=== PATIENT | male | born 1950 | race Caucasian/White ===

== ENCOUNTER 2017-02-05 13:14 | Observation (INO) | payer BC, OTHER ==
[2017-02-05] MEDS ORDERED: diphenhydrAMINE 25 MG CAP PO ONE (13:32)
[2017-02-05] MEDS ORDERED: NS 1,000 ML IV ONE (13:32)
[2017-02-05] MEDS ORDERED: DIAZEPAM 5 MG TAB PO ONE (13:32)
[2017-02-05] MEDS ORDERED: BACITRACIN IRRIGATION/NS 50,000 UNITS/1,000 ML BTL IRR ONE (13:32)
[2017-02-05] MEDS ORDERED: ceFAZolin 2 GM/DEXTROSE 100 ML IV ONE (13:32)
[2017-02-05] MEDS ORDERED: BUPIVACAINE 0.5% 30 ML SDV ONE ×2 (13:37→13:47)
[2017-02-05] MEDS ORDERED: LIDOCAINE 1% 30 ML SDV ONE ×2 (13:37→13:46)
[2017-02-05] MEDS ORDERED: MIDAZOLAM 2 MG/2 ML VIAL ONE ×4 (13:37→15:40)
[2017-02-05] MEDS ORDERED: fentaNYL 100 MCG/2 ML INJ ONE ×2 (13:37→13:46)
[2017-02-05] MEDS ORDERED: IOPAMIDOL (ISOVUE-300) 100 ML BTL IV ONE (13:38)
--- NOTE | 2017-02-05 13:38 | CPEKG ---
Heart Rate: 64 RR Interval: 938 P-R Interval: 288 QRSD Interval: 84 QT Interval: 408 QTC Interval: 421 P Butler: 6 QRS Butler: 23 T Wave Butler: 18 EKG Severity - ABNORMAL ECG - EKG Impression: SINUS RHYTHM EKG Impression: FIRST DEGREE AV BLOCK Electronically Signed By: Jas Galicia 05-Feb-2017 16:17:34
[2017-02-05 15:02] LABS: % IMMATURE GRANULYOCYTES 0.4 % (0.0-1.1); ABSOLUTE IMMATURE GRANULOCYTES 0.02 10^3/uL (0.00-0.10); ADD DIFF? NO; ADD MORPH? NO; ADD SCAN? NO; ATYPICAL LYMPHOCYTE FLAG 20 (0-99); FRAGMENT RBC FLAG 0 (0-99); HEMATOCRIT 40.4 % (40.0-51.0); HEMOGLOBIN 14.2 g/dL (13.7-17.5); LEFT SHIFT FLG 0 (0-99); LIPEMIA HEMOLYSIS FLAG 90 (0-99); MEAN CELL HEMOGLOBIN 32.5 pg (27.9-34.1); MEAN CELL HEMOGLOBIN CONCENTR. 35.1 g/dL (32.4-36.7); MEAN CELL VOLUME 92.4 fL (81.5-99.8); MEAN PLATELET VOLUME 11.5 fL (8.7-11.7); PLATELET CLUMPS FLAG 10 (0-99); PLATELET COUNT 142 10^3/uL (150-400); RED BLOOD CELL COUNT 4.37 10^6/uL (4.40-6.38); RED CELL DISTRIBUTION WIDTH 12.3 % (11.5-15.2)
[2017-02-05 15:10] LABS: INR 1.02 (0.83-1.16); PROTIME(PATIENT) 13.3 SEC (12.0-15.0)
[2017-02-05 15:14] LABS: ANION GAP 12 mEq/L (8-16); CALCIUM 9.8 mg/dL (8.5-10.4); CARBON DIOXIDE 23 mEq/l (22-31); CHLORIDE 107 mEq/L (97-110); CREATININE 1.5 mg/dL (0.7-1.3); GLOMERULAR FILTRATION RATE 47; GLUCOSE 85 mg/dL (70-100); POTASSIUM 4.9 mEq/L (3.5-5.2); SODIUM 142 mEq/L (134-144)
[2017-02-05] MEDS ORDERED: HYDROCODONE/APAP 5/325 TAB PO PRN (16:15)
--- NOTE | 2017-02-05 16:15 | EPPROC ---
Electrophysiology Procedure Note: PROCEDURE PERFORMED: 1. Implantation of an A/V Pacemaker 2. Subclavian vein angiography 3. Fluoroscopy INDICATION: Chronotropic incompetence Wenkebach AV block and 2:1 AV block PROCEDURE NOTE: Patient presented to the cardiac catheterization laboratory in a fasting, post absorptive state . CCL RN administered sedation. The left infraclavicular area was prepped and draped in the usual sterile fashion. Lidocaine plus bupivacaine was used for local anesthesia. Left subclavian venography was performed by injection of iodinated contrast into the left antecubital vein. This was done to assure patency of the vein and also to assess for any anatomical aberrations. Using a combination of blunt and sharp dissection and electrocautery, the dissection was carried down to the prepectoral fascia. A pocket was made in this anatomical plane. All bleeding was controlled with electrocautery. The pocket was packed with gauze soaked in antibiotic solution. Fluoroscopy was utilized during the entire procedure for venous access and placement of the leads. Using a direct stick technique the left extrathoracic axillary vein was accessed with 2 sticks using the modified Seldinger technique. Placement of the guidewires into the venous system was confirmed by low-pressure blood return and also by visualizing the guidewires advancing into the inferior vena cava. A purse string suture was applied around the guidewires. Two #7 Citizen [place] sheaths were advanced under fluoroscopic guidance over the guidewire. An active fixation ventricular lead was advanced into the right ventricular apex and screwed in place. An active fixation atrial lead was advanced into the right atrial appendage and screwed in place. The peel away sheaths were removed. Pacing thresholds, sensing parameters and lead impedances were measured. There was no diaphragmatic stimulation at maximum output. The leads were sutured to the prepectoral fascia with 3 nonabsorbable sutures each. The pocket was again inspected for any bleeding. The leads were attached to the pacemaker securely. The pacemaker was inserted into the pocket and secured in place with a nonabsorbable suture. The atrial lead dislodged after the pacemaker pocket was closed and therefore had to be repositioned. Fluoroscopy was performed in MCBRIDE and ZAMBIAN planes to verify right-sided placement of the leads. Also fluoroscopy of the pacemaker pocket was performed. The pacemaker pocket was closed in 3 layers with absorbable monocryl sutures and javna. Appropriate dressing was applied. The patient left the cardiac catheterization laboratory in stable condition. Serial Numbers: 1. Device: SJM Assurity MRI 2272 SN [id number] 2. Atrial Lead: SJM Tendril [id number] SN [id number] 3. Ventricular Lead: SJM Tendril [id number] 58 SN [id number] Stimulation Thresholds & Impedance Measurements: 1. Atrial Lead 1 V 0.5 ms 1.5 mA P 3.4 mV 621 ohm 2. Ventricular Lead 0.5 V 0.5 ms 0.4 mA R 12.1 mV 917 ohm Mitchell Pacing Parameters 1. Pacing mode: DDDR 2. Lower rate: 60 ppm 3. Upper tracking rate: 130 ppm 4. Upper sensor rate: 130 ppm Patient Problems: Problems Problem Status Onset Bradycardia Acute
[2017-02-05] MEDS ORDERED: IBUPROFEN 200 MG TAB PO PRN (16:16)
--- NOTE | 2017-02-05 16:30 | CPEKG ---
Heart Rate: 137 RR Interval: 438 P-R Interval: 308 QRSD Interval: 82 QT Interval: 424 QTC Interval: 641 P Newry: 0 QRS Newry: 18 T Wave Newry: 39 EKG Severity - ABNORMAL ECG - EKG Impression: AV paced rhythm with intermittent V sensing EKG Impression: FIRST DEGREE AV BLOCK EKG Impression: PROBABLE LEFT ATRIAL ABNORMALITY Electronically Signed By: aJs Galicia 06-Feb-2017 18:22:54
[2017-02-05] MEDS ORDERED: ASPIRIN 81 MG CHEWABLE TAB PO SCH (21:00)
[2017-02-05] MEDS ORDERED: ATORVASTATIN CALCIUM 40 MG TAB PO SCH (21:00)
[2017-02-06 05:34] LABS: % IMMATURE GRANULYOCYTES 0.2 % (0.0-1.1); ABSOLUTE IMMATURE GRANULOCYTES 0.01 10^3/uL (0.00-0.10); ADD DIFF? NO; ADD MORPH? NO; ADD SCAN? NO; ATYPICAL LYMPHOCYTE FLAG 20 (0-99); FRAGMENT RBC FLAG 10 (0-99); HEMATOCRIT 38.4 % (40.0-51.0); HEMOGLOBIN 13.2 g/dL (13.7-17.5); LEFT SHIFT FLG 0 (0-99); LIPEMIA HEMOLYSIS FLAG 90 (0-99); MEAN CELL HEMOGLOBIN CONCENTR. 34.4 g/dL (32.4-36.7); MEAN CELL VOLUME 93.2 fL (81.5-99.8); MEAN PLATELET VOLUME 12.2 fL (8.7-11.7); PLATELET CLUMPS FLAG 0 (0-99); PLATELET COUNT 158 10^3/uL (150-400); RED BLOOD CELL COUNT 4.12 10^6/uL (4.40-6.38); RED CELL DISTRIBUTION WIDTH 12.6 % (11.5-15.2)
[2017-02-06 05:36] VITALS: PULSE 60
[2017-02-06 05:51] LABS: ANION GAP 8 mEq/L (8-16); CALCIUM 9.2 mg/dL (8.5-10.4); CARBON DIOXIDE 21 mEq/l (22-31); CHLORIDE 108 mEq/L (97-110); CREATININE 1.2 mg/dL (0.7-1.3); GLOMERULAR FILTRATION RATE > 60; GLUCOSE 84 mg/dL (70-100); POTASSIUM 4.8 mEq/L (3.5-5.2); SODIUM 137 mEq/L (134-144)
[2017-02-06 07:34] VITALS: BP 129/71; RESP 20; TEMP 97.9; O2SAT 90
--- NOTE | 2017-02-06 08:57 | CPEKG ---
Heart Rate: 63 RR Interval: 952 P-R Interval: 284 QRSD Interval: 78 QT Interval: 408 QTC Interval: 418 P Treynor: -18 QRS Treynor: 4 T Wave Treynor: 26 EKG Severity - ABNORMAL ECG - EKG Impression: ATRIAL-PACED COMPLEXES EKG Impression: FIRST DEGREE AV BLOCK EKG Impression: PROBABLE LEFT ATRIAL ABNORMALITY Electronically Signed By: Jas Galicia 06-Feb-2017 18:22:29
--- NOTE | 2017-02-06 10:48 | PDDCSUM ---
Discharge Summary Discharge Summary: 66-year-old male admitted for elective pacemaker implantation because of chronotropic incompetence and intermittent 2-1 and Wenckebach AV block associated with fatigue. Hospital course and stay-patient had a pacemaker implantation yesterday, procedure was uneventful. Postprocedure chest x-ray on the evening of the procedure in the morning after the procedure is normal with leads in good position. Device check this morning shows normal pacemaker function. Wound site is clean and dry without any evidence of bleeding or infection. Postprocedure care was reviewed with the patient. He will have javan removed in 1 week. He will follow up with me in 1 month.
== END 2017-02-06 14:14 | disposition home or self-care (01) ==
LOC: FCATH 13:14 → F2W 16:15
PROVIDERS: ADMIT Internal Medicine Cardiovascular Disease; ATTEND Internal Medicine Cardiovascular Disease
DX: I44.1 Atrioventricular block, second degree (principal); E78.5 Hyperlipidemia, unspecified; I35.0 Nonrheumatic aortic (valve) stenosis
CPT/HCPCS: 33208; 93005; G0378; C1785; C1898; J0690; J2250; J3010; Q9967

== ENCOUNTER → 2017-02-12 | Outpatient (CLI) | payer OTHER ==
[~2017-02-12] MED LIST: IOPAMIDOL (ISOVUE 370) 100 ML BTL IV ONE
== END ==
LOC: FIMAGING 11:54
PROVIDERS: ATTEND Internal Medicine Cardiovascular Disease
DX: I71.2 Thoracic aortic aneurysm, without rupture (principal); I35.0 Nonrheumatic aortic (valve) stenosis; I25.10 Atherosclerotic heart disease of native coronary artery without angina pectoris; R00.1 Bradycardia, unspecified
CPT/HCPCS: Q9967

== ENCOUNTER → 2017-04-10 | Outpatient (CLI) | payer OTHER, MEDICARE | LOC: BHFA 13:15 | PROVIDERS: ATTEND Internal Medicine Cardiovascular Disease | DX: I48.91 Unspecified atrial fibrillation (principal); Z95.0 Presence of cardiac pacemaker ==

== ENCOUNTER → 2017-10-14 | Outpatient (CLI) | payer OTHER, MEDICARE | LOC: BHCLAF 09:15 | PROVIDERS: ATTEND Internal Medicine | DX: I25.10 Atherosclerotic heart disease of native coronary artery without angina pectoris (principal); I35.9 Nonrheumatic aortic valve disorder, unspecified | CPT/HCPCS: 93306-PO ==

== ENCOUNTER → 2017-10-15 | Outpatient (CLI) | payer OTHER, MEDICARE | LOC: FIMAGING 12:45 | PROVIDERS: ATTEND Internal Medicine | DX: Z13.820 Encounter for screening for osteoporosis (principal); M85.80 Other specified disorders of bone density and structure, unspecified site; E29.1 Testicular hypofunction ==

== ENCOUNTER → 2018-06-03 | Outpatient (CLI) | payer OTHER, MEDICARE | LOC: BHFA 16:15 | PROVIDERS: ATTEND Internal Medicine Cardiovascular Disease | DX: I35.0 Nonrheumatic aortic (valve) stenosis (principal) ==

== ENCOUNTER → 2018-07-30 | Day surgery (SDC) | payer OTHER, MEDICARE ==
[~2018-07-30] MED LIST changes: +ASPIRIN EC 325 MG TAB PO ONE; +ATROPINE SULFATE 1 MG/10 ML SYR IVP PRN; +DIAZEPAM 5 MG TAB PO ONE; +FAMOTIDINE 20 MG TAB PO ONE; +HYDROCODONE/APAP 5/325 TAB PO PRN; -IOPAMIDOL (ISOVUE 370) 100 ML BTL IV ONE; +IOPAMIDOL (ISOVUE-370) 150 ML BTL IV ONE; +LIDOCAINE 1% 300 MG/30 ML SDV ONE; +MIDAZOLAM 2 MG/2 ML VIAL ONE; +NITROGLYCERIN 0.4 MG BTL SL PRN; +NS 1,000 ML IV ONE; +ONDANSETRON 4 MG/2 ML VIAL IVP PRN; +OXYCODONE/APAP 5/325 TAB PO PRN; +diphenhydrAMINE 25 MG CAP PO ONE; +fentaNYL 100 MCG/2 ML INJ ONE
[2018-07-30 12:42] LABS: PLATELET COUNT 172 10^3/uL (150-400)
[2018-07-30 12:51] LABS: INR 0.98 (0.83-1.16); PROTIME(PATIENT) 13.2 SEC (12.0-15.0)
--- NOTE | 2018-07-30 13:43 | PDPROPOC ---
Sedation Plan of Care Sedation Plan of Care: vital signs stable, mental status noted, patient educated of risks, benefits, alternatives, patient can tolerate sedation ASA Classification: ASA 2 Planned drugs: fentanyl, midazolam Mallampati Score: Class 2 Mallampati Reference Image: Patient passed 3-3-2 rule?: Yes
--- NOTE | 2018-07-30 13:43 | PDHPUP ---
History & Physical Update H&P update statement: This history and physical update is based on an assessment of the patient which was completed after admission or registration (within 24 hours), but prior to the surgery/procedure. H&P update: H&P reviewed & patient examined, no change in patient's condition since H&P completed (Reviewed Dr. Trivedi's office note dated 07/15/2018)
--- NOTE | 2018-07-30 15:12 | PDDXCAT ---
Diagnostic Cath Note - . Date: 07/30/18 Site Interpreter: Valentín Indication: other (pre TAVR) - Procedure Access: right groin Procedure: left heart catheterization, coronary angiography - Materials Left Heart Cath size: 6F Left Heart Cath materials: JL4.0, JR4.0 - Findings-Left Heart Catheterization LM: Normal and bifurcates into the LAD and left circumflex LAD: Reaches apex. 1 large diagonal vessel. No significant disease in the LAD or the diagonal. LCX: Large. Left dominant. 1 large obtuse marginal. No significant disease. RCA: No significant disease. EDP: Aortic valve was not crossed due to the patient's history of severe aortic stenosis. - Findings-Right Heart Catheterization AO: 114/63 Complications: None Estimated blood loss: <50ml Closure method: Angioseal Assessment: No significant coronary disease in this left dominant system Plan: Continue cardiac surgery evaluation for aortic valve replacement. Patient Problems: Problems Problem Status Onset Bradycardia Acute
--- NOTE | 2018-07-31 16:30 | CPEKG ---
Test Reason : OPEN Blood Pressure : / mmHG Vent. Rate : 066 BPM Atrial Rate : 066 BPM P-R Int : 253 ms QRS Dur : 163 ms QT Int : 455 ms P-R-T Axes : -04 -79 083 degrees QTc Int : 477 ms Atrial-sensed ventricular-paced rhythm Prior ECG with atrial paced rhythm Confirmed by Arturo Guo ([id number]) on 07/31/2018 4:30:19 PM Referred By: Confirmed By:Arturo Guo
== END | disposition home or self-care (01) ==
LOC: FCATH 12:08
PROVIDERS: ATTEND Internal Medicine Cardiovascular Disease
PROC: B2111ZZ Fluoroscopy of Multiple Coronary Arteries using Low Osmolar Contrast (ICD-10-PCS; principal; 2018-07-30)
DX: Z13.6 Encounter for screening for cardiovascular disorders (principal); I35.0 Nonrheumatic aortic (valve) stenosis; Z85.47 Personal history of malignant neoplasm of testis; I77.810 Thoracic aortic ectasia; I48.0 Paroxysmal atrial fibrillation; Z79.01 Long term (current) use of anticoagulants; Z95.0 Presence of cardiac pacemaker
CPT/HCPCS: C1760; J1644; J2250; J3010; Q9967

== ENCOUNTER 2018-07-31 08:45 | Inpatient (IN) | payer OTHER, MEDICARE ==
[2018-08-04] MEDS ORDERED: NOREPINEPHRINE BITARTRATE 16 MG in NS 250 ML IV ONE (06:00)
[2018-08-04] MEDS ORDERED: AMINOCAPROIC ACID 5 GM/20 ML VIAL IV ONE (06:00)
[2018-08-04] MEDS ORDERED: MANNITOL 25% 12.5 GM/50 ML VIAL IVP ONE (06:00)
[2018-08-04] MEDS ORDERED: PHENYLEPHRINE HCL 50 MG in NS 250 ML IV ONE (06:00)
[2018-08-04] MEDS ORDERED: INSULIN REGULAR HUMAN 100 UNIT in NS 100 ML IV ONE (06:00)
[2018-08-04] MEDS ORDERED: PROTAMINE SULFATE 50 MG/5 ML VIAL IVP ONE (08:26)
[2018-08-04] MEDS ORDERED: ALBUMIN 5% 250 ML BOTTLE IV ONE ×2 (08:26→13:23)
[2018-08-04] MEDS ORDERED: NA BICARBONATE 50 MEQ/50 ML VIAL ONE ×2 (08:27→14:43)
[2018-08-04] MEDS ORDERED: MILRINONE/DEXTROSE/100 ML BAG IV ONE (08:27)
[2018-08-04] MEDS ORDERED: LIDOCAINE 2% 100 MG/5 ML SYR ONE (08:27)
[2018-08-04] MEDS ORDERED: CALCIUM CHLORIDE 1 GM/10 ML INJ ONE (08:27)
[2018-08-04] MEDS ORDERED: HEPARIN 10,000 UNIT/10 ML MDV (1,000 UNIT/ML) ONE (08:28)
[2018-08-04] MEDS ORDERED: niCARdipine/NACL/200 ML BAG IV ONE (08:28)
[2018-08-04] MEDS ORDERED: CITRATE DEXTROSE SOLN 500 ML BAG ONE (08:28)
[2018-08-04] MEDS ORDERED: DOPamine/DEXTROSE 400 MG/250 ML BAG IV ONE (08:28)
[2018-08-04] MEDS ORDERED: AMIODARONE HCL 150 MG/3 ML VIAL ONE (08:29)
[2018-08-04] MEDS ORDERED: ADENOSINE 6 MG/2 ML VIAL ONE (08:29)
[2018-08-04] MEDS ORDERED: methylPREDNISolone SOD SUCC 1 GM/8 ML VIAL ONE (08:29)
[2018-08-04] MEDS ORDERED: ceFAZolin 1 GM VIAL ONE ×3 (08:29→12:53)
[2018-08-04] MEDS ORDERED: MAGNESIUM SULFATE 1 GM/2 ML VIAL ONE (08:29)
[2018-08-04] MEDS ORDERED: NITROGLYCERIN/D5W 50 MG/250 ML BOTTLE IV ONE (08:29)
[2018-08-04] MEDS ORDERED: CHLORHEXIDINE GLUC HIBICLENS 118 ML BTL TP SCH (08:33)
[2018-08-04] MEDS ORDERED: MUPIROCIN 2% 22 GM OINT NS ONE (08:33)
[2018-08-04] MEDS ORDERED: MUPIROCIN 2% 22 GM OINT NS SCH (08:33)
[2018-08-04] MEDS ORDERED: ceFAZolin 2 GM/DEXTROSE 100 ML IV ONE (08:33)
[2018-08-04] MEDS ORDERED: NS 1,000 ML IV ONE (08:33)
[2018-08-04] MEDS ORDERED: LIDOCAINE 1% 2 ML INJ ID PRN (08:33)
[2018-08-04] MEDS ORDERED: CITRATE DEXTROSE SOLN 500 ML BAG MISC ONE (08:33)
--- NOTE | 2018-08-04 09:42 | PDHPUP ---
History & Physical Update H&P update statement: This history and physical update is based on an assessment of the patient which was completed after admission or registration (within 24 hours), but prior to the surgery/procedure. H&P update: H&P reviewed & patient examined, changes noted ([facility] neg for CAD. PPM interrogation this am reveals low burden (<1 %) of AF since 09/2017. Affirms desire for MICS AVR. CoxMaze IV only if conversion to full sternotomy.)
--- NOTE | 2018-08-04 09:53 | PDANEPAE ---
ANE History of Present Illness here for AVR ANE Past Medical History - Cardiovascular History Hx Hypertension: No Hx Arrhythmias: Yes Hx Chest Pain: No Hx Coronary Artery / Peripheral Vascular Disease: Yes Hx CHF / Valvular Disease: Yes Hx Palpitations: No - Pulmonary History Hx COPD: No Hx Asthma/Reactive Airway Disease: No Hx Recent Upper Respiratory Infection: No Hx Oxygen in Use at Home: No Hx Sleep Apnea: No Sleep Apnea Screening Result - Last Documented: Negative - Neurologic History Hx Cerebrovascular Accident: No Hx Seizures: No Hx Dementia: No - Endocrine History Hx Diabetes: No - Renal History Hx Renal Disorders: No - Liver History Hx Hepatic Disorders: No - Neurological & Psychiatric Hx Hx Neurological and Psychiatric Disorders: No - Cancer History Hx Cancer: Yes Cancer History Comment: testicular CA x 2 - Congenital Disorder History Hx Congenital Disorders: No - GI History Hx Gastrointestinal Disorders: No - Other Health History Other Health History: wears glasses - Chronic Pain History Chronic Pain: No - Surgical History Prior Surgeries: double orchiectomy. ACL replacement. hernia repair. appendectomy. tumor removal from renal artery. pacemaker insertion ANE Review of Systems Review of systems is: negative Review of Systems: - Exercise capacity Exercise capacity: >=4 METS METS (RN): 5 METS - Pacemaker Pacemaker Type: Permanent Pacer/Defib Pacemaker Tree Marker: [place] Pacemaker Model: 2272 Pacemaker Mode: DDDR Pacemaker Set Rate: 60 Date Pacemaker Last Checked: 06/17/2018 ANE Patient History - Allergies Allergies/Adverse Reactions: No Known Allergies Allergy (Verified 07/23/18 11:17) - Home Medications Home medications: home medication list seen and reviewed Home Medications: Atorvastatin Calcium [Lipitor 40 mg (*)] 40 mg PO HS 02/05/17 [Last Taken ] - NPO status NPO Status: no food or drink >8 hours NPO Since - Liquids (Date): 08/03/18 NPO Since - Liquids (Time): 23:00 NPO Since - Solids (Date): 08/03/18 NPO Since - Solids (Time): 21:00 - Smoking Hx Smoking Status: Never smoked - Family Anes Hx Family Hx Anesthesia Complications: none ANE Labs/Vital Signs - Vital Signs Vital Signs: reviewed preoperatively; see RN documention for details Blood Pressure: 143/91 Heart Rate: 74 Respiratory Rate: 15 O2 Sat (%): 94 Height: 180.34 cm Weight: 84.822 kg ANE Physical Exam - Airway Neck exam: FROM Mallampati Score: Class 1 - Pulmonary Pulmonary: no respiratory distress - Cardiovascular Cardiovascular: regular rate and rhythym - ASA Status ASA Status: IV ANE Anesthesia Plan Anesthesia Plan: general endotracheal anesthesia Lines/Monitors: arterial line, central line, VIOLETA
[2018-08-04] MEDS ORDERED: fentaNYL 250 MCG/5 ML INJ ONE (10:11)
[2018-08-04] MEDS ORDERED: MIDAZOLAM 2 MG/2 ML VIAL ONE ×2 (10:11→10:14)
[2018-08-04] MEDS ORDERED: PROPOFOL/EMULSION 500 MG/50 ML BOTTLE IV ONE (10:13)
[2018-08-04] MEDS ORDERED: KETAMINE 200 MG/20 ML VIAL ONE (10:49)
[2018-08-04] MEDS ORDERED: ISOFLURANE 100 ML BOTTLE IH ONE (11:59)
[2018-08-04] MEDS ORDERED: EPINEPHrine 1 MG/ML INJ ONE (12:14)
[2018-08-04] MEDS ORDERED: BUPIVACAINE 0.25% 30 ML SDV ONE (12:14)
[2018-08-04] MEDS ORDERED: fentaNYL 100 MCG/2 ML INJ ONE (13:15)
[2018-08-04] MEDS ORDERED: KETOROLAC 30 MG/1 ML SDV ONE (13:19)
[2018-08-04] MEDS ORDERED: SODIUM CL NASAL 45 ML BTL EACHNARE PRN (13:38)
[2018-08-04] MEDS ORDERED: D50W 25 GM/50 ML SYR IVP PRN (13:38)
[2018-08-04] MEDS ORDERED: MAGNESIUM HYDROXIDE 30 ML UDCUP PO PRN (13:38)
[2018-08-04] MEDS ORDERED: niCARdipine/NACL 200 ML IV PRN (13:38)
[2018-08-04] MEDS ORDERED: ONDANSETRON DISINTEGRATING 4 MG TAB PO PRN (13:38)
[2018-08-04] MEDS ORDERED: MEPERIDINE 25 MG/0.5 ML AMP IVP PRN (13:38)
[2018-08-04] MEDS ORDERED: fentaNYL 100 MCG/2 ML INJ IVP PRN (13:38)
[2018-08-04] MEDS ORDERED: POLYETHYLENE GLYCOL 3350 17 GM PKT PO PRN (13:38)
[2018-08-04] MEDS ORDERED: PANTOPRAZOLE SODIUM 40 MG VIAL IVP ONE (13:38)
[2018-08-04] MEDS ORDERED: METOCLOPRAMIDE 10 MG/2 ML VIAL IVP PRN (13:38)
[2018-08-04] MEDS ORDERED: POTASSIUM Cl (KCl) 50 ML IV PRN (13:38)
[2018-08-04] MEDS ORDERED: BISACODYL 10 MG SUPP PR PRN (13:38)
[2018-08-04] MEDS ORDERED: ALBUMIN 5% 250 ML IV PRN (13:38)
[2018-08-04] MEDS ORDERED: NS 1,000 ML IV SCH (13:45)
[2018-08-04] MEDS ORDERED: traMADol 50 MG TAB PO PRN (13:48)
--- NOTE | 2018-08-04 13:55 | PDMN ---
Medical Necessity Medical necessity: 68 yo sp CPT 62069 [facility] [place]290 Cardiac Valve Replacement or Repair, s/p partial sternotomy, L atrial appendage ligation, MC IP only
[2018-08-04] MEDS ORDERED: INSULIN REGULAR HUMAN 100 UNIT in NS 100 ML IV SCH (14:00)
--- NOTE | 2018-08-04 14:10 | POSTANESTH ---
Post Anesthetic Evaluation Cardiovascular Status: Normal, Stable Respiratory Status: Normal, Stable Level of Consciousness/Mental Status: Mildly Sleepy, Arousable Pain Control: Adequate, Prn Tx Ordered Nausea/Vomiting Control: Adequate, Prn Tx Ordered Complications Possibly Related to Anesthesia: None Noted
[2018-08-04] MEDS: ceFAZolin 2 GM/DEXTROSE 100 ML IV SCH ×2 (14:29→21:00)
[2018-08-04] MEDS ORDERED: HYDROmorphONE/DILAUDID 6 MG/30 ML PCA IV PRN (14:55)
[2018-08-04] MEDS ORDERED: NALOXONE HCL 0.4 MG/ML INJ IVP PRN (14:55)
--- NOTE | 2018-08-04 15:26 | GOP ---
DATE OF OPERATION: 08/04/2018 SURGEON: John Trivedi DO RUBBER FLAP CUTTER: MD Angella Hoskins PA-C ANESTHESIOLOGIST: Maynor Rubio MD. PREOPERATIVE DIAGNOSIS: 1. Severe aortic stenosis. 2. Atrial flutter by history. POSTOPERATIVE DIAGNOSIS: 1. Severe aortic stenosis. 2. Atrial flutter by history. PROCEDURE PERFORMED: 1. Minimally invasive aortic valve replacement with a #25 Intuity valve. 2. AtriClip to the left atrial appendage. FINDINGS: Patient was noted to have critical aortic stenosis and history of paroxysmal atrial flutte r. He was reluctant to undergo a sternotomy for full Magana Maze procedure and was offered an AtriClip atrial appendage management through the minimal incision if we were able to visualize. He is also ex pecting a minimally invasive aortic valve replacement. DESCRIPTION OF PROCEDURE: He was consented for surgery, brought to the operating room, intubated. M onitoring lines were placed. He was prepped and draped in sterile classical manner. A partial sterno hemant to the 3rd intercostal space was performed. It was T'd off, a retractor was placed. He was hep arinized. The aorta was interrogated without calcium, it was cannulated in the ascending aorta and r ight atrium. Cardiopulmonary bypass was begun. Antegrade cardioplegic arrest was obtained. We then used intermittent antegrade cardioplegia directly down the coronary ostia. A heavily calcified tril eaflet valve was excised. The anulus was debrided. The patient was sized for a 25 Intuity valve whi ch was secured with three 2-0 Tycrons at the herman of the sinuses and secured in place with balloon d ilation. The 3 sutures were tied. The aortotomy was closed in a 2-layer fashion. The patient had C O2 infused throughout the procedure. He was kept in Trendelenburg until no further air was identifie d. He was easily weaned from bypass, echo revealed a wisp of aortic insufficiency and otherwise no s ignificant hemodynamic insufficiency, which resolved prior to closing the chest. All cannulae were r emoved, 2 ventricular pacing wires and 1 mediastinal drain were placed. The thymic fat and pericardi um were closed. Chest was closed in standard fashion. Patient was extubated in the OR and returned to ICU in stable condition. /[id number]/MODL
--- NOTE | 2018-08-04 15:44 | PDCONSULT ---
Low Emission Automobile Designer Note: Chief complaint: Shortness of breath ROMANA Ivan is a very pleasant 68-year-old male who is status post bioprosthetic AVR for severe aortic stenosis. He has a h/o longstanding murmur and was found to have aortic stenosis on echocardiogram. On serial TTEs, he had evidence of progression his stenosis with subsequent mild aortic insufficiency and mitral regurgitation. He had associated exercise decline and progressive exertional dyspnea. He denied chest pain or syncope. He has longstanding paroxysmal atrial fibrillation and has been maintained on Eliquis, CAD on aspirin and statin. He denies fevers chills nausea vomiting shortness of breath however cold intolerance, weight changes. Patient had a mini midline sternotomy and valve repair without complication. He was extubated prior to being transferred to the ICU. History Information - Allergies/Home Medication List Allergies/Adverse Reactions: No Known Allergies Allergy (Verified 07/23/18 11:17) Home Medications: Atorvastatin Calcium [Lipitor 40 mg (*)] 40 mg PO HS 02/05/17 [Last Taken ] I have personally reviewed and updated: family history, medical history, social history, surgical history Past Medical History: - Past Medical History atrial fibrillation (Aortic stenosis, pacemaker placement, testicular cancer in remission, coronary artery disease, other heart disease) - Surgical History Additional surgical history: Bioprosthetic aortic valve replacement 08/04/2018, pacemaker placement, hernia repair, ACL reconstruction - Family History Positive for: CAD - Social History Smoking Status: Never smoked Alcohol Use: Occasionally Drug Use: None Lab and Imaging Hypo personally reviewed patient's laboratory data and radiographic imaging. 1029 chest x-ray postoperatively-right IJ in place and distal superior vena cava , mediastinal drains in place, low lung volumes, pacer leads in place. Visualized and Interpreted Chest x-ray results: Yes Assessment & Plan Assessment: ASSESSMENT AND PLAN 68-year-old male with severe aortic stenosis status post bioprosthetic AVR via mini sternotomy 08/04/2018. # Aortic Stenosis S/p bioprostetic AVR 08/04/18. No immediate complications. Extubated prior to transfer to the ICU. No signs or symptoms of impending respiratory failure Mgmt per Dr Corado # paroxysmal atrial fibrillation hold anticoagulation for now. Defer to CT surgery regarding timing of re- initiation # coronary disease Continue aspirin, statin. # Feeding - advanced as tolerated # Analgesia APAP, fentanyl, bowel regimen # Sedation none # Thromboprophylaxis - SQ hep # Head of bed elevated # Ulcer prophylaxis - oral PPI # Glucose SSI # Skin no skin breakdown # Delirium - delirium precautions ABX EVENTS 08/02/18 bioprostetic AVR, intubation, RIJ central line Physical Exam Physical Exam: - Physical Exam General Appearance: WD/WN Eye Exam: bilateral: PERRL, abnormal EOM Nasal Exam: normal inspection Throat: normal mouth inspection, pharynx normal Neck: non-tender, supple, normal inspection Cardiovascular/Respiratory: regular rate, rhythm, normal peripheral pulses. No : JVD, respiratory distress Abdominal Exam: non-tender. No: organomegaly Neuro/Psych: no motor/sensory deficits, alert, normal mood/affect, oriented x 3 Skin: normal color, warm/dry (Median sternotomy incision site clean dry and intact) Lymphatic: no adenopathy
[2018-08-04] MEDS ORDERED: NA BICARBONATE 50 MEQ/50 ML VIAL IV ONE (15:45)
[2018-08-04] MEDS: KETOROLAC 15 MG/1 ML SDV IVP SCH (17:38)
[2018-08-04] MEDS: ACETAMINOPHEN 325 MG TAB PO SCH (18:35)
[2018-08-04] MEDS: MUPIROCIN 2% 22 GM OINT NS SCH (20:21)
[2018-08-04] MEDS: CEPACOL LOZENGE PO PRN ×2 (21:00→22:40)
[2018-08-04] MEDS ORDERED: AMIODARONE HCL 200 ML IV ONE (23:00)
[2018-08-04] MEDS ORDERED: AMIODARONE HCL 100 ML IV ONE (23:00)
[2018-08-05] MEDS: KETOROLAC 15 MG/1 ML SDV IVP SCH ×5 (00:01→23:27)
[2018-08-05] MEDS: ACETAMINOPHEN 325 MG TAB PO SCH ×5 (01:14→23:28)
[2018-08-05] MEDS: CEPACOL LOZENGE PO PRN (03:33)
[2018-08-05 04:25] LABS: PLATELET COUNT 102 10^3/uL (150-400)
[2018-08-05] MEDS ORDERED: AMIODARONE 18HR INFSN (ORDER 3/3) IV ONE (05:00)
[2018-08-05] MEDS: ceFAZolin 2 GM/DEXTROSE 100 ML IV SCH ×3 (05:10→22:10)
[2018-08-05] MEDS: HEPARIN 5,000 UNIT/0.5 ML INJ SC SCH ×2 (05:15→14:18)
--- NOTE | 2018-08-05 07:25 | SOAPPROG ---
SOAP Progress Note Assessment/Plan: Assessment: POD#1 Mini AVR #25 Intuity Elite sutureless bioprosthesis via inverse T upper sternotomy, prophylactic AtriClip exclusion left atrial appendage Severe - s/p tissue valve replacement thru mini upper sternotomy. Extubated in the OR. Hemodynamically stable without pressor support or bradyarrhythmias. No sig volume overload. Antithrombotic prophylaxis as per rhythm. PAF/Flutter - Hx SSS/CHB for which dual chamber PPM implanted. Rare episodes breakthrough AF/Fl well tolerated and Maze declined. Chronically anticoagulated on Eliquis for [id number] score of 2. Postop rhythm paced with few salvos of wide complex tachycardia, suppressed with amio. Adjunctive BB when appropriate. Acute expected blood loss anemia - Stable. No transfusions required. VTE prophylaxis with SCDs and Eliquis. Dyslipidemia w bill atherosclerosis - Secondary prevention with baby ASA, BB and statin when appropriate. Plan: Routine POD#1 orders re. wires, lines, orals and mobility Vwire removed. Chest tube removal later today. Transition to oral amio tonight. Resume Eliquis tonight. Tx to PCU. 08/05/18 07:11 Subjective: Feels ok. Pain adequately controlled but would like drain removed LUDY. No nausea. Yet to void post moore removal. Objective: Vital Signs Temp Pulse Resp BP Pulse Ox 36.6 C 69 20 114/68 95 08/05/18 00:00 08/05/18 06:00 08/05/18 06:00 08/05/18 06:00 08/05/18 06:00 Laboratory Results 08/05/18 04:15 08/05/18 04:15 08/04/18 08/05/18 08/06/18 05:59 05:59 05:59 Intake Total 1357 Output Total 630 Balance 727 Predominantly paced, -PHOSPHORIC ACID SUPERVISOR or AP-PHOSPHORIC ACID SUPERVISOR. Few salvos of wide complex tachycardia last noc. No assoc hypotension. Stable suppl O2 req. Modest UOP with retention by bladder scan. Straight cath imminent if no spontaneous void soon. CTOP at removal criteria. CXR-> No PTX, no pulm vasc congestion, no effusions Labs as expected. 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
[2018-08-05] MEDS: oxyCODONE IR 5 MG TAB PO PRN ×5 (09:01→23:27)
[2018-08-05] MEDS: PANTOPRAZOLE SODIUM 40 MG TAB PO SCH (09:01)
[2018-08-05] MEDS: MUPIROCIN 2% 22 GM OINT NS SCH ×2 (09:01→21:00)
[2018-08-05] MEDS: ASPIRIN 81 MG CHEWABLE TAB PO SCH (09:01)
--- NOTE | 2018-08-05 09:53 | ASMTCMCOM ---
CM Note CM Note Notes: 68yr old male admitted for aortic stenosis and MR. He has a Hx of Afib, DLD, anticoagulation, pacer. He lives with his in [place]. Had an AVR. Therapies to eval. CM to follow for possible discharge needs. Date Signed: 08/05/2018 09:53 AM Electronically Signed By:Nori Allen LCSW
[2018-08-05] MEDS: AMIODARONE HCL 200 MG TAB PO SCH (20:59)
[2018-08-05] MEDS: APIXABAN 5 MG TAB PO SCH (21:00)
[2018-08-05] MEDS: SENNOSIDES/DOCUSATE SODIUM TAB PO SCH (21:00)
[2018-08-05] MEDS ORDERED: METOPROLOL TARTRATE 25 MG TAB PO SCH (21:00)
[2018-08-06] MEDS: oxyCODONE IR 5 MG TAB PO PRN ×5 (03:00→23:31)
[2018-08-06 03:13] LABS: PLATELET COUNT 100 10^3/uL (150-400)
[2018-08-06] MEDS: ACETAMINOPHEN 325 MG TAB PO SCH ×4 (06:04→23:31)
--- NOTE | 2018-08-06 06:22 | SOAPPROG ---
SOAP Progress Note Assessment/Plan: POD#2: Mini AVR #25 Intuity Elite sutureless bioprosthesis via inverse T upper sternotomy, prophylactic AtriClip exclusion left atrial appendage Severe - s/p tissue valve replacement thru mini upper sternotomy. Extubated in the OR. Hemodynamically stable without pressor support or bradyarrhythmias. No sig volume overload. Antithrombotic prophylaxis as per rhythm. PAF/Flutter - Hx SSS/CHB for which dual chamber PPM implanted. Rare episodes breakthrough AF/Fl well tolerated and Maze declined. Chronically anticoagulated on Eliquis for [id number] score of 2. Postop rhythm paced with few salvos of wide complex tachycardia, suppressed with amio. Adjunctive BB when appropriate. Acute expected blood loss anemia - Stable. No transfusions required. VTE prophylaxis with SCDs and Eliquis. Dyslipidemia w bill atherosclerosis - Secondary prevention with baby ASA, BB and statin when appropriate. Disposition - possible discharge home without services Subjective: Pain well-controlled. Denies SOB. Objective: Vital Signs Temp Pulse Resp BP Pulse Ox 36.6 C 63 12 106/60 95 08/06/18 04:00 08/06/18 04:00 08/06/18 04:00 08/06/18 04:00 08/06/18 04:00 Laboratory Results 08/06/18 03:05 08/06/18 03:05 08/05/18 08/06/18 08/07/18 05:59 05:59 05:59 Intake Total 1357 1935 Output Total 630 1425 Balance 727 510 Physical Exam - Physical Exam General Appearance: WD/WN, alert, no apparent distress EENT: No scleral icterus (R), No scleral icterus (L) Neck: normal inspection Respiratory: No respiratory distress Cardiac/Chest: regular rate, rhythm Abdomen: non-tender, soft, No distended Skin: normal color, warm/dry Extremities: No pedal edema Neuro/Psych: no motor/sensory deficits, alert, normal mood/affect, oriented x 3 ICD10 Worksheet Patient Problems: Problems Problem Status Onset Acute blood loss anemia Acute S/P aortic valve replacement with bioprosthetic valve Acute ~08/04/18 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
[2018-08-06] MEDS: APIXABAN 5 MG TAB PO SCH ×2 (08:22→20:51)
[2018-08-06] MEDS: AMIODARONE HCL 200 MG TAB PO SCH ×2 (08:22→20:51)
[2018-08-06] MEDS: SENNOSIDES/DOCUSATE SODIUM TAB PO SCH ×3 (08:22→20:52)
[2018-08-06] MEDS: METOPROLOL TARTRATE 25 MG TAB PO SCH ×2 (08:23→20:51)
[2018-08-06] MEDS: PANTOPRAZOLE SODIUM 40 MG TAB PO SCH (08:23)
[2018-08-06] MEDS: ASPIRIN 81 MG CHEWABLE TAB PO SCH (08:23)
[2018-08-06] MEDS: MUPIROCIN 2% 22 GM OINT NS SCH ×2 (08:25→20:52)
[2018-08-06] MEDS ORDERED: ZOLPIDEM TARTRATE 5 MG TAB PO PRN (14:01)
[2018-08-06] MEDS ORDERED: FUROSEMIDE 40 MG/4 ML VIAL IVP ONE (17:50)
[2018-08-06] MEDS ORDERED: NS 1,000 ML IV SCH (18:45)
[2018-08-07] MEDS: oxyCODONE IR 5 MG TAB PO PRN ×4 (04:39→19:32)
[2018-08-07] MEDS: ACETAMINOPHEN 325 MG TAB PO SCH ×3 (06:50→19:32)
--- NOTE | 2018-08-07 07:22 | SOAPPROG ---
SOAP Progress Note Assessment/Plan: POD#3: Mini AVR #25 Intuity Elite sutureless bioprosthesis via inverse T upper sternotomy, prophylactic AtriClip exclusion left atrial appendage Severe - s/p tissue valve replacement thru mini upper sternotomy. Extubated in the OR. Hemodynamically stable without pressor support or bradyarrhythmias. Antithrombotic prophylaxis as per rhythm. PAF/Flutter - Hx SSS/CHB for which dual chamber PPM implanted. Rare episodes breakthrough AF/Fl well tolerated and Maze declined. Chronically anticoagulated on Eliquis for [id number] score of 2. Postop rhythm paced with few salvos of wide complex tachycardia, suppressed with amio. Adjunctive BB. Acute expected blood loss anemia - Stable. No transfusions required. VTE prophylaxis with SCDs and Eliquis. Dyslipidemia w bill atherosclerosis - Secondary prevention with baby ASA, BB and statin when appropriate. Disposition - possible discharge home without services Subjective: No complaints. Thinks he needs another day before going home. Objective: Vital Signs Temp Pulse Resp BP Pulse Ox 36.4 C 64 20 117/61 95 08/07/18 04:00 08/07/18 04:00 08/07/18 04:00 08/07/18 04:00 08/07/18 04:00 Laboratory Results 08/06/18 03:05 08/07/18 04:45 08/06/18 08/07/18 08/08/18 05:59 05:59 05:59 Intake Total 1935 2535 Output Total 1425 1225 Balance 510 1310 Physical Exam - Physical Exam General Appearance: WD/WN, alert, no apparent distress EENT: No scleral icterus (R), No scleral icterus (L) Neck: normal inspection Respiratory: No respiratory distress Cardiac/Chest: other ([employer]) Abdomen: non-tender, soft, No distended Skin: normal color, warm/dry Extremities: pedal edema Neuro/Psych: no motor/sensory deficits, alert, normal mood/affect, oriented x 3 ICD10 Worksheet Patient Problems: Problems Problem Status Onset Acute blood loss anemia Acute S/P aortic valve replacement with bioprosthetic valve Acute ~08/04/18 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
[2018-08-07] MEDS ORDERED: POTASSIUM CL 20 MEQ TAB PO ONE (07:48)
[2018-08-07] MEDS ORDERED: FUROSEMIDE 40 MG/4 ML VIAL IVP ONE ×2 (07:48→15:00)
[2018-08-07] MEDS: METOPROLOL TARTRATE 25 MG TAB PO SCH ×2 (08:50→20:38)
[2018-08-07] MEDS: AMIODARONE HCL 200 MG TAB PO SCH ×2 (08:50→20:37)
[2018-08-07] MEDS: PANTOPRAZOLE SODIUM 40 MG TAB PO SCH (08:50)
[2018-08-07] MEDS: APIXABAN 5 MG TAB PO SCH ×2 (08:50→20:37)
[2018-08-07] MEDS: ASPIRIN 81 MG CHEWABLE TAB PO SCH (08:50)
[2018-08-07] MEDS: MUPIROCIN 2% 22 GM OINT NS SCH (09:01)
[2018-08-07] MEDS: SENNOSIDES/DOCUSATE SODIUM TAB PO SCH ×2 (09:01→20:48)
--- NOTE | 2018-08-07 10:49 | ASMTCMCOM ---
CM Note CM Note Notes: CM reviewed pts chart. Per Dr. Trivedi's recommendation, pt will d/c home without any services. CM available for changes. Plan: Home w/ outpatient cardiac rehab w/ supportive family Date Signed: 08/07/2018 10:49 AM Electronically Signed By:ROSELIA Gaviria
--- NOTE | 2018-08-07 13:51 | ECHO ---
[email or web address] [address] [address] Main: [phone] Fax: Transthoracic Echocardiogram Name: MARIE ALVARADO MR#: [id number] Study Date: 08/07/2018 Study Time: 09:57 AM Date of : 1950 Age: 68 year(s) Height: 180.3 cm (71 in.) Weight: 92.53 kg (204 lb.) BSA: 2.13 m2 Gender: Male Examination: Echo Indication: #25 aortic intuity elite sutureless bioprosthesis Image Quality: Adequate Contrast: Requested by: Fransisco Keys BP: 107 mmHg/56 mmHg Heart Rate: Rhythm: Indication: #25 aortic intuity elite sutureless bioprosthesis Procedure Staff Trommel Tender: Olamide Negron RD Reading Physician: Arturo Guo MD Requesting Provider: Conclusions: Normal size left ventricle. Borderline concentric LV hypertrophy. Normal global systolic LV function. The ejection fraction is visually estimated to be 55 %. There is paradoxic septal motion suggestive of bundle branch block, paced cardiac rhythm, or prior cardiac surgery. Diastolic function is indeterminate. Normal size right ventricle. There is a pacemaker lead noted in the right ventricle. The right atrium is mildly dilated. The mitral valve is normal in appearance and function. Mild mitral valve leaflet calcification is present. The aortic valve is a bioprosthesis. Normal functioning aortic valve prosthesis. The prosthetic aortic valve is normal. The tricuspid valve is normal in appearance and function. Mild to moderate tricuspid valve regurgitation. The pulmonary artery pressure is normal. Right ventricular systolic pressure measures 29mmHg. There is no pulmonic regurgitation seen. Normal size ascending aorta measuring 3.6 cm. There is a pleural effusion present. Small circumferential pericardial effusion. Measurements: Chambers Valvular Assessment AV/MV Valvular Assessment TV/PV Normal Normal Normal Name Value Range Name Value Range Name Value Range TR Vmax: 2.46 mm/s ( - ) Patient: MARIE ALVARADO Study Date: 08/07/2018 Page 1 of 3 09:57 AM Ao Madeleine (2D): 2.9 cm (1.4 cm-2.6 AV Vmax: 2.00 m/s (1 m/s-1.7 TR PGmax: 24 mmHg ( - ) cm) m/s) syst. PAP: 29 mmHg ( - ) IVSd (2D): 1.2 cm (0.6 cm-1.1 AV maxP mmHg ( - ) PV Vmax: 0.90 m/s (0.6 m/s-0.9 cm) AV meanP mmHg ( - ) m/s) LVDd (2D): 5.1 cm (4.2 cm-5.9 SUKUMAR (VTI): 1.6 cm ( - ) PV PGmax: 3 mmHg ( - ) cm) MV E Vmax: 0.91 m/s ( - ) LVDs (2D): 3.2 cm (2.1 cm-4 MV A Vmax: 1.14 m/s ( - ) cm) MV E/A: 0.80 ( - ) LVPWd (2D): 1.1 cm (0.6 cm-1 cm) MV meanP mmHg ( - ) LVOTd 2.2 cm 2.2 cm mm MV PHT: 0.100 s ( - ) Visual EF: 55 % MVA (Vmax): 1.4 m/s ( - ) RVDd(2D): 3.0 cm (1.9 cm-3.8 MVA (PHT): 2.2 s ( - ) cmmm) Continued Measurements: Chambers Valvular Assessment AV/MV Valvular Assessment TV/PV Name Value Name Value Name Value LADs: 3.2 cm MV DecTime: 317 m/s CVP (est.): 5 mmHg RA Area: 25.6 cm2 MV E' Septal: 0.06 m/s MV E/E' Septal: 16.30 MV E/E' Lateral: 11.00 MV VTI: 41.70 cm Additional Vessels Name Value Ao Ascendin.6 cm Inferior Vena Cava: 2.7 cm Findings: Left Ventricle: Normal size left ventricle. Borderline concentric LV hypertrophy. Normal global systolic LV function. The ejection fraction is visually estimated to be 55 %. There is paradoxic septal motion suggestive of bundle branch block, paced cardiac rhythm, or prior cardiac surgery. Diastolic function is indeterminate. Right Ventricle: Normal size right ventricle. Normal RV function. There is a pacemaker lead noted in the right ventricle. Left Atrium: The left atrium is normal in size. Right Atrium: The right atrium is mildly dilated. Mitral Valve: The mitral valve is normal in appearance and function. Mild mitral valve leaflet calcification is present. Mild mitral valve regurgitation is present. There is possible mild stenosis of the mitral valve ??. Aortic Valve: The aortic valve is a bioprosthesis. Normal functioning aortic valve prosthesis. The prosthetic aortic valve is normal. The orifice motion of the prosthetic aortic valve is normal. Trivial prosthesis regurgitation. #25 aortc Intuity Elite sutureless bioprosthesis appears well seated. Tricuspid Valve: The tricuspid valve is normal in appearance and function. Mild to moderate tricuspid valve regurgitation. The pulmonary artery pressure is normal. Right ventricular systolic pressure measures 29mmHg. Pulmonic Valve: The pulmonic valve is normal in appearance and function. There is no pulmonic regurgitation seen. Aorta: The aorta is normal. Normal size aortic root measuring 2.9 cm. Normal size ascending aorta measuring 3.6 cm. Patient: MARIE ALVARADO Study Date: 08/07/2018 Page 2 of 3 09:57 AM IVC: The IVC is dilated. Pericardium: There is a pleural effusion present. Small circumferential pericardial effusion. (No Signature Object) Patient: MARIE ALVARADO Study Date: 08/07/2018 Page 3 of 3 09:57 AM [id number]
[2018-08-07] MEDS ORDERED: ATORVASTATIN CALCIUM 40 MG TAB PO SCH (21:00)
[2018-08-08] MEDS: oxyCODONE IR 5 MG TAB PO PRN ×4 (00:43→12:53)
[2018-08-08] MEDS: ACETAMINOPHEN 325 MG TAB PO SCH ×3 (00:44→11:56)
--- NOTE | 2018-08-08 07:07 | SOAPPROG ---
SOAP Progress Note Assessment/Plan: POD#4: Mini AVR #25 Intuity Elite sutureless bioprosthesis via inverse T upper sternotomy, prophylactic AtriClip exclusion left atrial appendage Severe - s/p tissue valve replacement thru mini upper sternotomy. Extubated in the OR. Hemodynamically stable without pressor support or bradyarrhythmias. Antithrombotic prophylaxis as per rhythm. PAF/Flutter - Hx SSS/CHB for which dual chamber PPM implanted. Rare episodes breakthrough AF/Fl well tolerated and Maze declined. Chronically anticoagulated on Eliquis for [id number] score of 2. Postop rhythm paced with few salvos of wide complex tachycardia, suppressed with amio. Adjunctive BB. Acute expected blood loss anemia - Stable. No transfusions required. VTE prophylaxis with SCDs and Eliquis. Dyslipidemia w bill atherosclerosis - Secondary prevention with baby ASA, BB and statin when appropriate. Disposition - Home today without services Subjective: No complaints. Ready to go home. Objective: Vital Signs Temp Pulse Resp BP Pulse Ox 36.7 C 66 17 104/67 93 08/08/18 03:56 08/08/18 03:56 08/08/18 03:56 08/08/18 03:56 08/08/18 05:51 Laboratory Results 08/06/18 03:05 08/07/18 04:45 08/07/18 08/08/18 08/09/18 05:59 05:59 05:59 Intake Total 2535 1820 Output Total 1225 2750 Balance 1310 -930 Physical Exam - Physical Exam General Appearance: WD/WN, alert, no apparent distress EENT: No scleral icterus (R), No scleral icterus (L) Neck: normal inspection Respiratory: No respiratory distress Cardiac/Chest: other ([employer]) Abdomen: non-tender, soft, No distended Skin: normal color, warm/dry Extremities: pedal edema Neuro/Psych: no motor/sensory deficits, alert, normal mood/affect, oriented x 3 ICD10 Worksheet Patient Problems: Problems Problem Status Onset Acute blood loss anemia Acute S/P aortic valve replacement with bioprosthetic valve Acute ~08/04/18 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
--- NOTE | 2018-08-08 08:11 | PDHOMEO2F ---
Home Oxygen Face to Face Home Orders: I certify that a physician or a nurse practitioner or physician's assistant family teacher has had a [id number] encounter with this patient on the date of this order due to the diagnosis listed, which relates to the primary reason the patient requires home oxygen. Alternative treatments have been tried, or considered, and deemed ineffective. It is anticipated that supplemental oxygen will result in improvement with treatment. Home oxygen qualifying diagnosis: aortic stenosis, hypoxemia, SOB SpO2 on room air (%): 83 Frequency of home oxygen needed: continuous Home oxygen liters per minute: 1 Home oxygen delivery device: nasal cannula Concentrator: Yes E-tanks for mobility and back up: Yes If ordering portable O2, is the patient mobile in the home?: Yes I certify that, based on these findings, the home oxygen is medically necessary for this patient for the following length of time. Length of time home oxygen needed: 1 month
--- NOTE | 2018-08-08 08:22 | PDDCSUM ---
Discharge Summary Discharge Summary: ADMISSION DATE: 08/04/18 DISCHARGE DATE: 08/08/18 DISCHARGE DIAGNOSES 1. Severe aortic stenosis 2. Paroxysmal atrial fibrillation and flutter with heart block and presence of AV PPM 3. Acute blood loss anemia PROCEDURES 08/04/18, John Trivedi: 1. Mini AVR #25 Intuity Elite sutureless bioprosthesis via inverse T upper sternotomy, prophylactic AtriClip exclusion left atrial appendage HPI 68M with aortic stenosis admitted for elective AVR. HOSPITAL COURSE BY PROBLEM LIST 1. Severe aortic stenosis - s/p tissue valve replacement thru mini upper sternotomy. Antithrombotic prophylaxis with baby ASA. Beta-claude for AF prophylaxis. 2. Paroxysmal atrial fibrillation and flutter with heart block and presence of AV PPM - Eliquis restarted. Amiodarone prescribed for one month for post-op tachycardia. 3. Acute blood loss anemia - stable without the need for transfusions. CONDITION Good PERTINENT DISCHARGE CLINICAL INFORMATION Vitals: 107/60, 67 v-paced, 92% on 1 L/min, +7kg Exam: S1S2, No resp distress, ND, soft, NTP, LE with +1 edema BL DISPOSITION Home, self-care ACTIVITY Pt was instructed on sternal precautions, activity limitations, and which problems to call [facility] with. Please see Discharge Plan in chart for specifics. DISCHARGE MEDICATIONS Continue: Lipitor, Eliquis New: Acetaminophen prn, Amiodarone 200 BID for 7 days then daily until tablets run out, ASA 81 mg daily, Lasix 40 mg daily, Ibuprofen prn, Metoprolol 25 mg BID, Percocet 5/325mg q6h prn (#20), KCL 20 meq daily, Senokot prn Stop n/a PENDING STUDIES/LABS 1. CXR prior to surgical follow-up FOLLOW-UP 1. John Trivedi, 08/19/18, 10:30 AM 2. Ashtyn Laura (cardiology), as directed
[2018-08-08] MEDS ORDERED: FUROSEMIDE 40 MG TAB PO SCH (09:00)
[2018-08-08] MEDS ORDERED: POTASSIUM CL 20 MEQ TAB PO SCH (09:00)
[2018-08-08] MEDS: ASPIRIN 81 MG CHEWABLE TAB PO SCH (09:12)
[2018-08-08] MEDS: AMIODARONE HCL 200 MG TAB PO SCH (09:12)
[2018-08-08] MEDS: APIXABAN 5 MG TAB PO SCH (09:13)
[2018-08-08] MEDS: PANTOPRAZOLE SODIUM 40 MG TAB PO SCH (09:14)
[2018-08-08] MEDS: METOPROLOL TARTRATE 25 MG TAB PO SCH (09:15)
[2018-08-08] MEDS: SENNOSIDES/DOCUSATE SODIUM TAB PO SCH (09:18)
[2018-08-08 12:57] VITALS: BP 107/60
--- NOTE | 2018-08-10 14:44 | CPEKG ---
Test Reason : OPEN Blood Pressure : / mmHG Vent. Rate : 068 BPM Atrial Rate : 060 BPM P-R Int : 064 ms QRS Dur : 171 ms QT Int : 511 ms P-R-T Axes : 000 -81 065 degrees QTc Int : 544 ms Atrial-ventricular dual-paced complexes Confirmed by John Alexandre ([id number]) on 08/10/2018 2:44:02 PM Referred By: Confirmed By:John Alexandre
== END 2018-08-08 13:02 | disposition home or self-care (01) | DRG 220 ==
LOC: F3N 08-04 08:18 → F2N 08-04 12:29 → F2W 08-06 12:20
PROVIDERS: ADMIT Thoracic Surgery (Cardiothoracic Vascular Surgery); ATTEND Thoracic Surgery (Cardiothoracic Vascular Surgery)
DX: I35.0 Nonrheumatic aortic (valve) stenosis (principal); I48.92 Unspecified atrial flutter; D62 Acute posthemorrhagic anemia; I48.0 Paroxysmal atrial fibrillation; I25.10 Atherosclerotic heart disease of native coronary artery without angina pectoris; E78.5 Hyperlipidemia, unspecified; Z95.0 Presence of cardiac pacemaker; Z79.01 Long term (current) use of anticoagulants
CPT/HCPCS: 82435-PO; 82565-PO; 82947-PO; 83605-PO; 84132-PO; 84295-PO; 84520-PO; 85014-PO; 97116-GP; 97161-GP; 97165-GO; 97530-GO; 97530-GP; 97535-GO; G8978-GP-CJ; G8978-GP-CK; G8979-GP-CI; G8987-GO-CK; G8988-GO-CI; G8988-GO-CJ; G8989-GO-CJ; J0153; J0171; J0282; J0690; J1170; J1265; J1644; J1815; J1885; J1940; J2001; J2150; J2250; J2260; J2270; J2370; J2704; J2720; J2765; J2930; J3010; J3475; P9041

== ENCOUNTER 2018-08-13 12:24 | Inpatient (IN) | payer OTHER, MEDICARE ==
[2018-08-13] MEDS ORDERED: ceFAZolin 2 GM/DEXTROSE 100 ML IV ONE (14:26)
--- NOTE | 2018-08-13 14:59 | PDANEPAE ---
ANE History of Present Illness here for pericardial window ANE Past Medical History - Cardiovascular History Hx Hypertension: No Hx Arrhythmias: Yes Hx Chest Pain: No Hx Coronary Artery / Peripheral Vascular Disease: Yes Hx CHF / Valvular Disease: Yes Hx Palpitations: No - Pulmonary History Hx COPD: No Hx Asthma/Reactive Airway Disease: No Hx Recent Upper Respiratory Infection: No Hx Oxygen in Use at Home: No Hx Sleep Apnea: No Sleep Apnea Screening Result - Last Documented: Negative - Neurologic History Hx Cerebrovascular Accident: No Hx Seizures: No Hx Dementia: No - Endocrine History Hx Diabetes: No - Renal History Hx Renal Disorders: No - Liver History Hx Hepatic Disorders: No - Neurological & Psychiatric Hx Hx Neurological and Psychiatric Disorders: No - Cancer History Hx Cancer: Yes Cancer History Comment: testicular CA x 2 - Congenital Disorder History Hx Congenital Disorders: No - GI History Hx Gastrointestinal Disorders: No - Other Health History Other Health History: wears glasses - Chronic Pain History Chronic Pain: No - Surgical History Prior Surgeries: double orchiectomy. ACL replacement. hernia repair. appendectomy. tumor removal from renal artery. pacemaker insertion ANE Review of Systems Review of systems is: negative Review of Systems: - Exercise capacity Exercise capacity: >=4 METS - Pacemaker Pacemaker [employer] Officer: [employer] Pacemaker Mode: DDD Date Pacemaker Last Checked: 06/17/2018 ANE Patient History - Allergies Allergies/Adverse Reactions: No Known Allergies Allergy (Verified 07/23/18 11:17) - Home Medications Home medications: home medication list seen and reviewed Home Medications: Atorvastatin Calcium [Lipitor 40 mg (*)] 40 mg PO HS 02/05/17 [Last Taken ] - NPO status NPO Status: no food or drink >8 hours NPO Since - Liquids (Date): 08/13/18 NPO Since - Liquids (Time): 08:00 NPO Since - Solids (Date): 08/13/18 NPO Since - Solids (Time): 08:00 - Smoking Hx Smoking Status: Never smoked - Family Anes Hx Family Hx Anesthesia Complications: none ANE Labs/Vital Signs - Vital Signs Vital Signs: reviewed preoperatively; see RN documention for details Blood Pressure: 107/80 Heart Rate: 80 Respiratory Rate: 13 O2 Sat (%): 97 Height: 180.34 cm Weight: 88.904 kg ANE Physical Exam - Airway Neck exam: FROM Mallampati Score: Class 1 - Pulmonary Pulmonary: no respiratory distress - Cardiovascular Cardiovascular: regular rate and rhythym - ASA Status ASA Status: III, E ANE Anesthesia Plan Anesthesia Plan: general endotracheal anesthesia Lines/Monitors: central line
[2018-08-13] MEDS ORDERED: PROPOFOL/EMULSION 500 MG/50 ML BOTTLE IV ONE (15:11)
[2018-08-13] MEDS ORDERED: fentaNYL 100 MCG/2 ML INJ ONE ×3 (15:11→16:55)
[2018-08-13] MEDS ORDERED: PHENYLEPHRINE HCL 100 MCG/ML SYR ONE (15:44)
[2018-08-13] MEDS ORDERED: ePHEDrine SULFATE 25 MG/5 ML SYR ONE ×2 (15:44)
[2018-08-13] MEDS ORDERED: SUGAMMADEX SODIUM 200 MG/2 ML VIAL IVP ONE (16:24)
[2018-08-13] MEDS ORDERED: ALBUTEROL 3 ML DEYVIAL IH PRN (16:35)
[2018-08-13] MEDS ORDERED: NALOXONE HCL 0.4 MG/ML INJ IVP PRN (16:35)
[2018-08-13] MEDS ORDERED: DEXAMETHASONE 4 MG/ML VIAL IVP PRN (16:35)
[2018-08-13] MEDS ORDERED: ONDANSETRON 4 MG/2 ML VIAL IVP PRN (16:35)
[2018-08-13] MEDS ORDERED: NS 500 ML IV PRN (16:35)
[2018-08-13] MEDS ORDERED: METOCLOPRAMIDE 10 MG TAB PO PRN (16:41)
[2018-08-13] MEDS ORDERED: METOCLOPRAMIDE 10 MG/2 ML VIAL IVP PRN (16:41)
[2018-08-13] MEDS ORDERED: ACETAMINOPHEN 325 MG TAB PO PRN (16:41)
[2018-08-13] MEDS: fentaNYL 100 MCG/2 ML INJ IVP PRN ×2 (16:52→17:07)
--- NOTE | 2018-08-13 16:58 | POSTANESTH ---
Post Anesthetic Evaluation Cardiovascular Status: Normal, Stable Respiratory Status: Normal, Stable Level of Consciousness/Mental Status: Can Participate in Eval Pain Control: Adequate, Prn Tx Ordered Nausea/Vomiting Control: Adequate, Prn Tx Ordered Complications Possibly Related to Anesthesia: None Noted
[2018-08-13] MEDS ORDERED: HYDROmorphONE/DILAUDID 2 MG/ML INJ ONE (17:13)
[2018-08-13] MEDS: HYDROmorphONE/DILAUDID 2 MG/ML INJ IVP PRN ×2 (17:14→17:30)
[2018-08-13] MEDS ORDERED: LACTULOSE 20 GM/30 ML UDCUP PO PRN (18:33)
[2018-08-13] MEDS ORDERED: BISACODYL 10 MG SUPP PR PRN (18:33)
[2018-08-13] MEDS ORDERED: MAGNESIUM HYDROXIDE 30 ML UDCUP PO PRN (18:33)
[2018-08-13] MEDS ORDERED: POLYETHYLENE GLYCOL 3350 17 GM PKT PO PRN (18:33)
[2018-08-13] MEDS: OXYCODONE/APAP 5/325 TAB PO PRN (19:05)
[2018-08-13] MEDS: SENNOSIDES/DOCUSATE SODIUM TAB PO SCH (20:44)
[2018-08-13] MEDS: METOPROLOL TARTRATE 25 MG TAB PO SCH (20:45)
[2018-08-13] MEDS: ATORVASTATIN CALCIUM 40 MG TAB PO SCH (20:46)
[2018-08-13] MEDS: AMIODARONE HCL 200 MG TAB PO SCH (20:47)
[2018-08-13] MEDS ORDERED: METOPROLOL TARTRATE 25 MG TAB PO SCH (21:00)
[2018-08-13] MEDS: ceFAZolin 2 GM/DEXTROSE 100 ML IV SCH (22:34)
[2018-08-14] MEDS: OXYCODONE/APAP 5/325 TAB PO PRN ×5 (00:29→20:14)
[2018-08-14] MEDS: ACETAMINOPHEN 325 MG TAB PO SCH ×4 (01:06→18:16)
[2018-08-14] MEDS: ceFAZolin 2 GM/DEXTROSE 100 ML IV SCH (05:23)
[2018-08-14 06:04] LABS: PLATELET COUNT 41 10^3/uL (150-400)
--- NOTE | 2018-08-14 06:11 | SOAPPROG ---
SOAP Progress Note Assessment/Plan: POD #1: subxiphoid pericardial window, drainage of 600 cc sanguineous fluid Postoperative pericardial effusion secondary to Eliquis - CT with 125 cc/12 hours - keep until almost no output - Eliquis, ASA, NSAIDs, DVT prophylaxis to be held ARF (Cr 2.3) secondary to low cardiac output from pericardial effusion - Continue supportive care Acute blood loss anemia with thrombocytopenia - Monitor Severe aortic stenosis - s/p tissue valve replacement on 08/04 thru mini upper sternotomy - Antithrombotic prophylaxis with baby ASA held. Beta-claude for AF prophylaxis. Paroxysmal atrial fibrillation and flutter with heart block and presence of AV PPM - Eliquis held - Continue BB/amiodarone Subjective: Upset regarding events. Confused why this happened to him. Objective: Vital Signs Temp Pulse Resp BP Pulse Ox 36.5 C 80 13 110/79 95 08/13/18 18:00 08/14/18 05:00 08/14/18 05:00 08/14/18 05:00 08/14/18 05:00 Laboratory Results 08/14/18 05:10 08/14/18 05:10 08/13/18 08/14/18 08/15/18 05:59 05:59 05:59 Intake Total 1050 Output Total 1388 Balance -338 Physical Exam - Physical Exam General Appearance: WD/WN, alert, no apparent distress EENT: No scleral icterus (R), No scleral icterus (L) Neck: normal inspection Respiratory: No respiratory distress Cardiac/Chest: other (paced) Abdomen: non-tender, soft, No distended Skin: normal color, warm/dry Extremities: No pedal edema Neuro/Psych: no motor/sensory deficits, alert, normal mood/affect, oriented x 3 ICD10 Worksheet Patient Problems: Problems Problem Status Onset Anticoagulant-induced bleeding Acute Pericardial effusion Acute Chronic anticoagulation Chronic PAF (paroxysmal atrial fibrillation) Chronic S/P aortic valve replacement with bioprosthetic valve Chronic ~08/04/18
--- NOTE | 2018-08-14 06:59 | GOP ---
DATE OF OPERATION: 08/13/2018 SURGEON: Liu Gonzalez MD DISTRICT LEADER: Angella Graham, PAC. PREOPERATIVE DIAGNOSIS: Massive pericardial effusion. POSTOPERATIVE DIAGNOSIS: Massive pericardial effusion. PROCEDURE PERFORMED: Subxiphoid pericardial window and drainage of effusion. FINDINGS: INDICATIONS: This 68-year-old gentleman underwent aortic valve replacement approximately 10 days ago . He had a relatively uneventful postoperative course. He was started on his antiplatelet therapy f or his atrial fibrillation and was discharged home on uneventfully. He returned to the clinic today diaphoretic and feeling generally unwell. Echocardiography reveals a large pericardial effusion. He is taken to the operating room now for urgent drainage. DESCRIPTION OF PROCEDURE: The patient was taken to the operating room and placed on the operating ta ble in the supine position. After the induction of general anesthesia and single-lumen endotracheal tube intubation, the patient was prepped and draped sterilely. A 2.5 cm incision was made longitudin ally over the xiphoid. A subxiphoid approach was undertaken using a combination of blunt dissection and electrocautery, and we centered the pericardial space without difficulty. We drained 660 cc of d ark, old blood. Once this was completed, a 32-Spanish chest tube was placed through the pericardiotom y and then brought out through a separate stab incision in the skin. The wounds were then closed in layers with Vicryl suture. The patient tolerated the procedure well. /[id number]/MODL
[2018-08-14] MEDS: SENNOSIDES/DOCUSATE SODIUM TAB PO SCH ×2 (08:34→20:14)
[2018-08-14] MEDS: AMIODARONE HCL 200 MG TAB PO SCH (08:37)
[2018-08-14] MEDS: METOPROLOL TARTRATE 25 MG TAB PO SCH ×2 (08:47→21:09)
[2018-08-14] MEDS ORDERED: POTASSIUM CL 20 MEQ TAB PO SCH (09:00)
[2018-08-14] MEDS ORDERED: BISACODYL 5 MG EC TAB PO PRN (09:00)
[2018-08-14] MEDS ORDERED: FUROSEMIDE 40 MG TAB PO SCH (09:00)
--- NOTE | 2018-08-14 09:40 | ASMTCASEMG ---
Living Arrangements What is your living Answers: With Spouse arrangement? Who do you live with? Type Of Residence What kind of residence do Answers: House you live in? Discharge Plan Comments Coordination Status Comments Notes: Patient is a 68yo male who underwent aortic valve replacement approximately 10 days ago. Patient returned to the clinic on the and was found to have a large pericardial effusion. He was taken to surgery for urgent drainage.No therapies ordered at this time. Likely patient will d/c independently. D/C plan TBD. CM will follow. Date Signed: 08/14/2018 09:39 AM Electronically Signed By:Lise Menjivar LCSW
--- NOTE | 2018-08-14 10:56 | PDMN ---
Medical Necessity Medical necessity: Pt meets IP criteria as of 08/13/18 per MD and MCG [id number]; est los > 2 mn for ongoing management and tx of massive pericardial effusion requiring surgical intervention (subxiphoid pericardial window) as well as acute blood loss anemia and acute renal failure; requiring ongoing cardiac monitoring, serial labs, IV ABX, and ICU care. S/p valve repair 10 days ago.
[2018-08-14] MEDS: ATORVASTATIN CALCIUM 40 MG TAB PO SCH (20:14)
[2018-08-15] MEDS: ACETAMINOPHEN 325 MG TAB PO SCH ×4 (01:20→15:28)
[2018-08-15] MEDS: OXYCODONE/APAP 5/325 TAB PO PRN (01:40)
--- NOTE | 2018-08-15 07:04 | SOAPPROG ---
SOAP Progress Note Assessment/Plan: POD #2: subxiphoid pericardial window, drainage of 600 cc sanguineous fluid Postoperative pericardial effusion secondary to Eliquis - CT with low output - plan for removal tomorrow - Eliquis, ASA, NSAIDs, DVT prophylaxis to be held ARF secondary to low cardiac output from pericardial effusion - Cr 2.6 - IVF started, Lasix stopped AMS likely secondary to hypotension - CTH ordered to r/o CVA Acute blood loss anemia with thrombocytopenia - Platelets lower at 25 - HIT sent - Hematology consult ordered h/o Severe aortic stenosis - s/p tissue valve replacement on 08/04 thru mini upper sternotomy - Antithrombotic prophylaxis with baby ASA held - Beta-claude for AF prophylaxis. h/o Paroxysmal atrial fibrillation and flutter with heart block and presence of AV PPM - Eliquis held - Continue BB/amiodarone Subjective: Pt confused regarding events which occurred. Denies pain/SOB. Objective: Vital Signs Temp Pulse Resp BP Pulse Ox 36.6 C 66 14 123/67 H 97 08/15/18 04:00 08/15/18 04:00 08/15/18 04:00 08/15/18 04:00 08/15/18 04:00 Laboratory Results 08/15/18 06:00 08/14/18 08/15/18 08/16/18 05:59 05:59 05:59 Intake Total 1050 890 Output Total 1388 1048 200 Balance -338 -158 -200 Physical Exam - Physical Exam General Appearance: WD/WN, alert, no apparent distress EENT: No scleral icterus (R), No scleral icterus (L) Neck: normal inspection Respiratory: No normal breath sounds Cardiac/Chest: other (paced) Abdomen: non-tender, soft, No distended Skin: normal color, warm/dry Extremities: No pedal edema Neuro/Psych: no motor/sensory deficits, alert, oriented x 3, cognition abnormalities ICD10 Worksheet Patient Problems: Problems Problem Status Onset Anticoagulant-induced bleeding Acute Pericardial effusion Acute Chronic anticoagulation Chronic PAF (paroxysmal atrial fibrillation) Chronic S/P aortic valve replacement with bioprosthetic valve Chronic ~08/04/18
[2018-08-15 07:07] LABS: PLATELET COUNT 25 10^3/uL (150-400)
[2018-08-15] MEDS: SENNOSIDES/DOCUSATE SODIUM TAB PO SCH ×2 (08:25→21:30)
[2018-08-15] MEDS: AMIODARONE HCL 200 MG TAB PO SCH (08:25)
[2018-08-15] MEDS: METOPROLOL TARTRATE 25 MG TAB PO SCH ×2 (08:25→21:31)
[2018-08-15] MEDS: NS 1,000 ML IV SCH ×2 (08:26→19:23)
[2018-08-15] MEDS ORDERED: ACETAMINOPHEN 500 MG TAB PO ONE (11:30)
[2018-08-15] MEDS: traMADol 50 MG TAB PO PRN ×3 (12:39→21:31)
--- NOTE | 2018-08-15 14:04 | ASMTCMCOM ---
CM Note CM Note Notes: Therapies have been ordered and awaiting recommendations. Needs are TBD at this time. CM to follow. Date Signed: 08/15/2018 02:02 PM Electronically Signed By:ROSELIA Gaviria
[2018-08-15 15:23] LABS: INR 1.23 (0.83-1.16); PROTIME(PATIENT) 15.7 SEC (12.0-15.0)
[2018-08-15 15:37] LABS: PLATELET COUNT 52 10^3/uL (150-400)
[2018-08-15 15:38] LABS: PLATELET COUNT 52 10^3/uL (150-400)
--- NOTE | 2018-08-15 19:01 | GCON ---
HEMATOLOGY CONSULTATION REFERRING PHYSICIAN: Fransisco Keys PA-C REASON FOR CONSULTATION: Thrombocytopenia. HISTORY OF PRESENT ILLNESS: The patient is a 68-year-old man who underwent TAVR and atrial appendage clip 08/04/2018. That was essentially uncomplicated. Details are unclear, as there is no H and P, and the patient is not entirely certain of what brought him back to the hospital. He does not recall feeling dizzy, short of breath, or having chest pain. It appears he likely had an echocardiogram as an outpatient which demonstrated a pericardial effusion. That is not available in the record. He does not recall if this was done at a routine followup visit or not. 08/13/2018, he underwent a subxiphoid pericardial window with drainage of approximately 660 cc of dark blood. Pericardial drain remains in place. He was taking Eliquis and aspirin, which have been held. Laboratory studies available 08/14/2018 demonstrate WBC 10.6, hemoglobin 8.3, platelets 41,000. Today, hemoglobin 8.3, platelets 25,000. Platelet count , 172; 08/05/2018 (postoperatively) 102,000; 08/06/2018, 100,000. Hemoglobin 13.9 (07/30), 10.9 (08/06/18). In addition, creatinine 2.3 yesterday , 2.6 this morning. Currently, he reports being frustrated that he has another "hole in his chest," but denies dyspnea. PAST MEDICAL HISTORY: Aortic aneurysm, coronary artery disease, but no history of intervention. Hyperlipidemia. AV block, status post pacemaker 01/2017, paroxysmal atrial fibrillation. History of testicular cancer at age 28. PAST SURGICAL HISTORY: Left ACL repair, appendectomy, pacemaker 01/2017, hernia repair, orchiectomy. OUTPATIENT MEDICATIONS: As above. Home medications: Atorvastatin, Eliquis 5 mg b.i.d., Tylenol, amiodarone 200 mg b.i.d., aspirin 81 mg daily, Lasix 40 mg daily, ibuprofen 400 mg q.6 hours p.r.n., metoprolol 25 mg b.i.d., oxycodone p.r.n., KCl 20 mEq daily. ALLERGIES: No known drug allergies. SOCIAL HISTORY: He is . FAMILY HISTORY: Coronary artery disease. REVIEW OF SYSTEMS: CONSTITUTIONAL: No fever, chills. VISION: No changes. He wears glasses. CARDIOVASCULAR: Per HPI. RESPIRATORY: Per HPI. GI: No abdominal pain. HEMATOLOGIC: No other bleeding, bruising. NEUROLOGIC: He does not think he is confused, although staff reports some confusion. No headache. : No hematuria. PHYSICAL EXAM: VITAL SIGNS: 125/73, pulse 67, respirations 14, 97% on 2 L. Afebrile. GENERAL: Pleasant gentleman in no acute distress. Slightly pale. HEENT: No icterus. CARDIOVASCULAR: Regular rate and rhythm. No pitting edema. EXTREMITIES: Right upper extremity appears slightly large with right possibly larger than the left. LUNGS: Clear to auscultation. ABDOMEN: Soft, nontender. SKIN: Sternotomy incision and subxiphoid incision without oozing. No petechiae, ecchymoses. NEUROLOGIC: Alert and oriented. Some confusion reported per staff. Nonfocal. LABORATORY DATA: Per HPI. Normal LFTs today. HIT antibody has been sent. I reviewed his peripheral blood smear, which was remarkable for no platelet clumping, thrombocytopenia, some polychromasia, and no significant schistocytes. IMPRESSION: 1. Severe thrombocytopenia occurring 10 days following TAVR with cardiac bypass with heparin. 2. Anemia: Likely postoperative and blood loss (hemorrhagic pericardial effusion). 3. Acute kidney injury. 4. Confusion. Certainly, a diagnosis of heparin-induced thrombocytopenia is a concern. His pretest probability for heparin-induced thrombocytopenia (4T Score) is approximately 5, placing him at intermediate probability. I ordered additional studies to evaluate for alternative diagnoses (disseminated intravascular coagulation). There are no clear other culprit medications. Idiopathic thrombocytopenic purpura is possible, but would be a diagnosis completely unrelated to his recent surgery. He had a slight drop in platelets (less than 50%) postoperatively, which is not uncommon following cardiac surgery, but has had a more significant drop demonstrated in the last couple days. I would generally consider anticoagulation with a non-heparin agent while awaiting results of HIT antibody testing given the risk of HIT-related thrombosis; however, given his recent bleeding (hemorrhagic pericardial effusion ), he has a significant risk of bleeding. Given the intermediate probability and significant risk of bleeding, will evaluate for alternative causes of thrombocytopenia and hold on anticoagulation for right now. He does not have obvious evidence of hemolysis (normal bilirubin) and no evidence of schistocytes to support thrombotic thrombocytopenic purpura. LDH is pending. His confusion today is reported to have started after receiving narcotics overnight. Again, I do not think he has evidence of thrombotic thrombocytopenic purpura but recommend noncontrast head CT to exclude bleed. Given his creatinine, would not pursue a CT with contrast at this time. Hopefully, his acute kidney injury is related to reduced cardiac output from his pericardial effusion. He has been receiving IV fluids today and creatinine will be repeated later today. Discussed with RN and Dr. Keys. /[id number]/MODL MTDD
[2018-08-15] MEDS: ATORVASTATIN CALCIUM 40 MG TAB PO SCH (21:30)
[2018-08-16] MEDS: ACETAMINOPHEN 325 MG TAB PO SCH ×4 (02:53→18:06)
[2018-08-16] MEDS: traMADol 50 MG TAB PO PRN (03:08)
[2018-08-16 03:47] LABS: PLATELET COUNT 42 10^3/uL (150-400)
--- NOTE | 2018-08-16 10:10 | SOAPPROG ---
SOAP Progress Note Assessment/Plan: Assessment: This is a very pleasant 68-year-old male with history of testicular cancer 40 years ago who is status post TAVR who receiving in consultation for thrombocytopenia. 1. Thrombocytopenia: I reviewed his chart and am in agreement with Dr. Ban Lopez's assessment from yesterday. He has an intermittent risk for HIT. My concern though is that typically with HIT patients do not have underlying issues with bleeding. Given the recent hemorrhagic pericardial effusion, I am reluctant to start him on any non-heparin anticoagulation while we wait for the HIT antibodies. All heparin products have since been removed. I recommend holding any heparin products until the HIT panel returns. He has no evidence of venous thromboembolism. He did have right upper extremity Doppler that was negative. I explained to him the complicated nature of this decision making any voices understanding. He also voices concern with regards to starting anticoagulation without more diagnostic certainty. All questions were answered. He had ample amounts of time to ask questions. He voices understanding the plan was appreciative of my care today. 08/16/18 10:07 Subjective: No acute events overnight. He feels well this morning. No chest pain shortness of breath Objective: Vital Signs Temp Pulse Resp BP Pulse Ox 36.6 C 65 12 122/73 H 97 08/16/18 07:25 08/16/18 07:25 08/16/18 07:25 08/16/18 07:25 08/16/18 07:25 Laboratory Results 08/16/18 03:05 08/16/18 03:05 08/15/18 08/16/18 08/17/18 05:59 05:59 05:59 Intake Total 890 3092 Output Total 1048 2235 250 Balance -158 857 -250 PT 15.7 SEC (12.0-15.0) H 08/15/18 14:55 INR 1.23 (0.83-1.16) H 08/15/18 14:55 General: Pleasant-appearing male appears in no acute distress HEENT: Oropharynx is clear extraocular movements are intact Cardiovascular: Regular rhythm, sternotomy incision noted. No significant ecchymoses at the site. No active bleeding. Pulmonary: Clear to auscultation bilaterally, percutaneous chest tube noted with bloody output. Neuro: Moving all extremities equally. Alert and oriented x3. Skin: No skin lesions Abdomen: Soft nontender nondistended bowel sounds are present ICD10 Worksheet Patient Problems: Problems Problem Status Onset Anticoagulant-induced bleeding Acute Pericardial effusion Acute Chronic anticoagulation Chronic PAF (paroxysmal atrial fibrillation) Chronic S/P aortic valve replacement with bioprosthetic valve Chronic ~08/04/18
[2018-08-16] MEDS: METOPROLOL TARTRATE 25 MG TAB PO SCH ×2 (10:15→21:58)
[2018-08-16] MEDS: SENNOSIDES/DOCUSATE SODIUM TAB PO SCH ×2 (10:15→21:57)
[2018-08-16] MEDS: AMIODARONE HCL 200 MG TAB PO SCH (10:16)
--- NOTE | 2018-08-16 12:29 | SOAPPROG ---
SOAP Progress Note Assessment/Plan: POD #3 Subxiphoid pericardial window, drainage of 600 cc sanguineous fluid. Postoperative pericardial effusion secondary to Eliquis - CT with low output. Will remove drain today. - Eliquis, ASA, NSAIDs, DVT prophylaxis to be held Hx severe aortic stenosis s/p tissue valve replacement on 08/04 thru mini upper sternotomy - Antithrombotic prophylaxis with baby ASA held - Beta-claude for AF prophylaxis. Hx paroxysmal atrial fibrillation and flutter with heart block and presence of PPM - Eliquis held - Paced rhythm in 60-70s. - Continue BB/amiodarone - Hold ASA due to low platelets. Acute postop blood loss anemia - H&H 7.6/23.3 (7.6/23.1). - Patient asymptomatic and hemodynamically stable. Will hold off on transfusion. - Will start Iron and follow. Secondary thrombocytopenia - Plt 42k (52k) s/p transfusion of platelets yesterday - HIT pending - Hematology following. ARF secondary to low cardiac output from pericardial effusion - Cr improved to 1.9 (2.6). - Continue IVF - Renal following AMS likely secondary to hypotension - Head CT negative - Improving Subjective: Patient denies lightheadedness, dizziness, weakness. Reports adequate pain control. Patient is still confused, stating that the year is 1977. Objective: Vital Signs Temp Pulse Resp BP Pulse Ox 36.6 C 62 20 134/71 H 95 08/16/18 12:00 08/16/18 12:00 08/16/18 12:00 08/16/18 12:00 08/16/18 12:00 Laboratory Results 08/16/18 03:05 08/16/18 03:05 08/15/18 08/16/18 08/17/18 05:59 05:59 05:59 Intake Total 890 3092 Output Total 1048 2235 450 Balance -158 857 -450 PT 15.7 SEC (12.0-15.0) H 08/15/18 14:55 INR 1.23 (0.83-1.16) H 08/15/18 14:55 Physical Exam - Physical Exam General Appearance: WD/WN, alert, no apparent distress Neck: supple Respiratory: lungs clear, normal breath sounds Cardiac/Chest: regular rate, rhythm, other (no mumurs, rubs, gallops. Incision c/d/i.) Abdomen: normal bowel sounds, non-tender, soft Skin: normal color, warm/dry Extremities: other (Minimal lower extremity edema.) Neuro/Psych: alert, normal mood/affect, other (mildly disoriented) ICD10 Worksheet Patient Problems: Problems Problem Status Onset Anticoagulant-induced bleeding Acute Pericardial effusion Acute Chronic anticoagulation Chronic PAF (paroxysmal atrial fibrillation) Chronic S/P aortic valve replacement with bioprosthetic valve Chronic ~08/04/18
[2018-08-16] MEDS: FERROUS SULFATE 325 MG TAB PO SCH ×2 (13:24→21:57)
[2018-08-16] MEDS: NS 1,000 ML IV SCH (17:43)
[2018-08-16] MEDS: ATORVASTATIN CALCIUM 40 MG TAB PO SCH (21:57)
[2018-08-17] MEDS: ACETAMINOPHEN 325 MG TAB PO SCH ×5 (00:19→18:30)
[2018-08-17] MEDS: NS 1,000 ML IV SCH (03:33)
[2018-08-17 04:21] LABS: PLATELET COUNT 28 10^3/uL (150-400)
[2018-08-17] MEDS: SENNOSIDES/DOCUSATE SODIUM TAB PO SCH ×2 (08:15→21:42)
[2018-08-17] MEDS: FERROUS SULFATE 325 MG TAB PO SCH ×2 (08:15→21:44)
[2018-08-17] MEDS: METOPROLOL TARTRATE 25 MG TAB PO SCH ×2 (08:16→21:43)
[2018-08-17] MEDS: AMIODARONE HCL 200 MG TAB PO SCH (08:16)
--- NOTE | 2018-08-17 10:54 | SOAPPROG ---
SOAP Progress Note Assessment/Plan: Assessment: This is a very pleasant 68-year-old male with history of testicular cancer 40 years ago who is status post TAVR who receiving in consultation for thrombocytopenia. 1. Thrombocytopenia: He has an intermittent risk for HIT, with the hit antibodies being pending. Given the recent hemorrhagic pericardial effusion, I am reluctant to start him on any non-heparin anticoagulation while we wait for the HIT antibodies. All heparin products have since been removed. He has no evidence of venous thromboembolism. DIC panel is negative. There are no obvious medications to cause his thrombocytopenia. Interestingly, his platelet count was 100 pre procedure. I wonder whether he has a component of ITP. However, he did previously respond to platelet transfusion. His platelet count is down to the 20 is again today. I have recommended platelet transfusion. If his hit panel was negative I would consider starting him on IVIG versus steroids. For the time being, I would not sense any urgency to do this as he does not have ongoing hemorrhage. 2. Anemia: He did have a pericardial hemorrhage. His hemoglobin has been slowly downtrending. He is receiving PRBCs today. His pericardial drain was removed. I agree with reassessing his echocardiogram to ensure that he has not reaccumulated blood. All questions were answered. He had ample amounts of time to ask questions. He voices understanding the plan was appreciative of my care today. 08/17/18 10:51 Subjective: No acute events overnight. He had his pericardial drain removed yesterday. Overall he feels well. He does feel tired as he has not slept well. Objective: Vital Signs Temp Pulse Resp BP Pulse Ox 37.0 C 65 22 H 113/68 93 08/17/18 08:00 08/17/18 08:16 08/17/18 08:00 08/17/18 08:16 08/17/18 08:00 Laboratory Results 08/17/18 03:40 08/17/18 03:40 08/16/18 08/17/18 08/18/18 05:59 05:59 05:59 Intake Total 3092 2038 350 Output Total 2235 650 600 Balance 857 1388 -250 PT 15.7 SEC (12.0-15.0) H 08/15/18 14:55 INR 1.23 (0.83-1.16) H 08/15/18 14:55 General: Pleasant, no acute distress HEENT: Oropharynx is clear extraocular movements are intact pupils equal and react slight Cardiovascular: Regular rhythm, sternotomy incision is clean dry and intact, pericardial drain has been removed. Pulmonary: Clear to auscultation bilaterally Neuro: Moving all extremities, alert oriented x3 Skin: No skin lesions Abdomen: Soft nontender nondistended bowel sounds are present Psych: Appropriate affect ICD10 Worksheet Patient Problems: Problems Problem Status Onset Anticoagulant-induced bleeding Acute Pericardial effusion Acute Chronic anticoagulation Chronic PAF (paroxysmal atrial fibrillation) Chronic S/P aortic valve replacement with bioprosthetic valve Chronic ~08/04/18
--- NOTE | 2018-08-17 12:48 | SOAPPROG ---
<Jose LJose M - Last Filed: 08/17/18 13:47> SOAP Progress Note Assessment/Plan: Assessment: Pt seen and examined. Agree with note. Pt clinically doing well. Echo pending. Plan: 08/17/18 13:48 Objective: Vital Signs Temp Pulse Resp BP Pulse Ox 36.8 C 66 16 131/77 H 95 08/17/18 11:29 08/17/18 11:29 08/17/18 11:29 08/17/18 11:29 08/17/18 11:29 Laboratory Results 08/17/18 03:40 08/17/18 03:40 08/16/18 08/17/18 08/18/18 05:59 05:59 05:59 Intake Total 3092 2038 350 Output Total 2235 650 800 Balance 857 1388 -450 PT 15.7 SEC (12.0-15.0) H 08/15/18 14:55 INR 1.23 (0.83-1.16) H 08/15/18 14:55 ICD10 Worksheet Patient Problems: Problems Problem Status Onset Anticoagulant-induced bleeding Acute Pericardial effusion Acute Chronic anticoagulation Chronic PAF (paroxysmal atrial fibrillation) Chronic S/P aortic valve replacement with bioprosthetic valve Chronic ~08/04/18 <Carito Aguila - Last Filed: 08/17/18 13:50> SOAP Progress Note Assessment/Plan: POD #4 Subxiphoid pericardial window, drainage of 600 cc dark old blood Postoperative pericardial effusion secondary to Eliquis - Drain removed yesterday. - Repeat echo performed today to assess for re-accumulation. Results pending. - Eliquis, ASA, NSAIDs, DVT prophylaxis held Hx severe aortic stenosis s/p tissue valve replacement on 08/04 thru mini upper sternotomy - Antithrombotic prophylaxis with baby ASA held. - On Metoprolol. Hx paroxysmal atrial fibrillation and flutter with heart block and presence of PPM - Eliquis held - Paced rhythm in 60s - Continue BB/Amiodarone - Hold ASA due to low platelets Acute postop blood loss anemia - Worsening with H&H 7.0/21.4 (7.6/23.3). - Will transfuse 1UPRBC today. - On Iron. Will continue to follow. Secondary thrombocytopenia - Worsening with plt 28k (42k) s/p transfusion of platelets. - Will transfuse another pk of platelets today - HIT pending. If positive, will start IVIG per Heme recs. - Hematology following. ARF secondary to low cardiac output from pericardial effusion - Cr improving to 1.6 (1.9). - Continue IVF until tonight then d/c. AMS likely secondary to hypotension - Head CT negative - Essentially resolved. Bilateral upper extremity swelling - Present preop - Stable - Right upper extremity duplex negative - Will follow Subjective: Patient reports good pain control. "Am I ever going to be able to get out of here?" Objective: Vital Signs Temp Pulse Resp BP Pulse Ox 36.8 C 66 16 131/77 H 95 08/17/18 11:29 08/17/18 11:29 08/17/18 11:29 08/17/18 11:29 08/17/18 11:29 Laboratory Results 08/17/18 03:40 08/17/18 03:40 08/16/18 08/17/18 08/18/18 05:59 05:59 05:59 Intake Total 3092 2038 350 Output Total 2235 650 800 Balance 857 1388 -450 PT 15.7 SEC (12.0-15.0) H 08/15/18 14:55 INR 1.23 (0.83-1.16) H 08/15/18 14:55 Physical Exam - Physical Exam General Appearance: WD/WN, alert, no apparent distress Neck: supple Respiratory: lungs clear, decreased breath sounds (bases), other (No wheezing, rhonchi, rales. ) Cardiac/Chest: regular rate, rhythm, other Abdomen: normal bowel sounds, non-tender, soft Skin: normal color, warm/dry Extremities: other (Warm, no edema.) Neuro/Psych: alert, normal mood/affect, oriented x 3
--- NOTE | 2018-08-17 13:54 | ECHO ---
[email or web address] [address] [address] Main: [phone] Fax: Transthoracic Echocardiogram Name: MARIE ALVARADO MR#: [id number] Study Date: 08/17/2018 Study Time: 11:44 AM Date of : 1950 Age: 68 year(s) Height: 180.3 cm (71 in.) Weight: 90.72 kg (200 lb.) BSA: 2.11 m2 Gender: Male Examination: Limited Echo Indication: Dropping Hct/assess for reaccumulation of pericardial fluid, post post #25 aortic bioprosthesis Image Quality: Contrast: Requested by: Carito Aguila BP: 137 mmHg/72 mmHg Heart Rate: Rhythm: Indication: Dropping Hct/assess for reaccumulation of pericardial fluid, post post #25 aortic bioprosthesis Procedure Staff Insulation Cutter And Former: Rae Cevallos [facility] Reading Physician: Liu Gan MD Requesting Provider: Conclusions: Normal size left ventricle. Normal global systolic LV function. The ejection fraction is estimated to be 60-65 %. There is paradoxic septal motion suggestive of bundle branch block, paced cardiac rhythm, or prior cardiac surgery. There is a pacemaker lead noted in the right ventricle. The aortic valve is a bioprosthesis. Trivial residual anterior pericardial effusion with echogenicity within.. Measurements: Chambers Valvular Assessment AV/MV Valvular Assessment TV/PV Normal Normal Normal Name Value Range Name Value Range Name Value Range EF Range: 60-65 % AV Vmax: 2.30 m/s (1 m/s-1.7 TR Vmax: 2.28 mm/s ( - ) m/s) TR PGmax: 21 mmHg ( - ) AV meanP mmHg ( - ) syst. PAP: 26 mmHg ( - ) Continued Measurements: Valvular Assessment TV/PV Name Value CVP (est.): 5 mmHg Findings: Left Ventricle: Normal size left ventricle. Normal global systolic LV function. The ejection fraction is estimated to be Patient: MARIE ALVARADO Study Date: 08/17/2018 Page 1 of 2 11:44 AM 60-65 %. There is paradoxic septal motion suggestive of bundle branch block, paced cardiac rhythm, or prior cardiac surgery. Right Ventricle: There is a pacemaker lead noted in the right ventricle. Left Atrium: The left atrium is mildly dilated. Right Atrium: The right atrium is mildly to moderately dilated. Mitral Valve: Mild mitral valve regurgitation is present. Aortic Valve: The aortic valve is a bioprosthesis. Pericardium: Trivial residual anterior pericardial effusion with echogenicity within.. (No Signature Object) Patient: MARIE ALVARADO Study Date: 08/17/2018 Page 2 of 2 11:44 AM [id number]
[2018-08-17 16:53] LABS: INR 1.14 (0.83-1.16); PROTIME(PATIENT) 14.8 SEC (12.0-15.0)
--- NOTE | 2018-08-17 17:09 | ASMTCMCOM ---
CM Note CM Note Notes: CM spoke with Speech Therapist, patient initally refused order cognition eval but completed eval later in the day and is found to have significant impairment. SP is recommending outpatient speech. Patients was not present, CM needs to learn if there are HH preferences. OT recommending Home Care. Scheduled for echo today. CM to follow. Current D/C Plan: possible HH. Date Signed: 08/17/2018 05:08 PM Electronically Signed By:Sravani Culver
[2018-08-17 17:22] LABS: PLATELET COUNT 54 10^3/uL (150-400)
[2018-08-17] MEDS ORDERED: ARGATROBAN 250 MG in D5W 250 ML IV SCH ×2 (17:45→18:00)
[2018-08-17] MEDS: ATORVASTATIN CALCIUM 40 MG TAB PO SCH (21:42)
[2018-08-17] MEDS: traMADol 50 MG TAB PO PRN (21:46)
[2018-08-18] MEDS: ACETAMINOPHEN 325 MG TAB PO SCH ×4 (00:22→17:27)
[2018-08-18 07:00] LABS: INR 1.47 (0.83-1.16)
--- NOTE | 2018-08-18 07:23 | SOAPPROG ---
SOAP Progress Note Assessment/Plan: POD #5: subxiphoid pericardial window, drainage of 600 cc sanguineous fluid Postoperative pericardial effusion secondary to Eliquis - CT out, repeat ECHO shows trivial effusion - Eliquis, ASA, NSAIDs, DVT prophylaxis to be held ARF secondary to low cardiac output from pericardial effusion and dehydration - Cr 1.5 this AM, monitor - fluids stopped AMS likely secondary to hypotension - CTH without acute findings - AMS resolved Acute blood loss anemia - s/p 1U PRBC Thrombocytopenia with +HIT panel - s/p 2U platelets transfused prior to HIT status being known - platelets 52 this AM - Argatroban started, further mgmt and transition to Coumadin as per Hematology - Monitor for bleeding h/o Severe aortic stenosis - s/p tissue valve replacement on 08/04 thru mini upper sternotomy - Antithrombotic prophylaxis with baby ASA held - Beta-claude for AF prophylaxis. h/o Paroxysmal atrial fibrillation and flutter with heart block and presence of AV PPM - Eliquis held - Continue BB/amiodarone Subjective: Feels well this morning. Grateful for care. Memory has returned. Objective: Vital Signs Temp Pulse Resp BP Pulse Ox 37.2 C 69 20 141/73 H 97 08/18/18 04:00 08/18/18 04:00 08/18/18 04:00 08/18/18 04:00 08/18/18 04:00 Laboratory Results 08/18/18 06:30 08/18/18 06:30 08/17/18 08/18/18 08/19/18 05:59 05:59 05:59 Intake Total 2038 1200 Output Total 650 2700 Balance 1388 -1500 PT 18.0 SEC (12.0-15.0) H 08/18/18 06:30 INR 1.47 (0.83-1.16) H 08/18/18 06:30 Physical Exam - Physical Exam General Appearance: WD/WN, alert, no apparent distress EENT: No scleral icterus (R), No scleral icterus (L) Neck: normal inspection Respiratory: No respiratory distress Cardiac/Chest: other (paced) Abdomen: non-tender, soft, No distended Skin: normal color, warm/dry Extremities: No pedal edema Neuro/Psych: no motor/sensory deficits, alert, normal mood/affect, oriented x 3 ICD10 Worksheet Patient Problems: Problems Problem Status Onset Anticoagulant-induced bleeding Acute Pericardial effusion Acute Chronic anticoagulation Chronic PAF (paroxysmal atrial fibrillation) Chronic S/P aortic valve replacement with bioprosthetic valve Chronic ~08/04/18
[2018-08-18] MEDS: METOPROLOL TARTRATE 25 MG TAB PO SCH ×2 (10:33→20:09)
[2018-08-18] MEDS: AMIODARONE HCL 200 MG TAB PO SCH (10:34)
[2018-08-18] MEDS: FERROUS SULFATE 325 MG TAB PO SCH ×2 (10:34→20:08)
[2018-08-18] MEDS: SENNOSIDES/DOCUSATE SODIUM TAB PO SCH ×2 (10:35→20:09)
--- NOTE | 2018-08-18 14:05 | ASMTCMCOM ---
CM Note CM Note Notes: 08/18/2018 Case Management Note Discussed w/RN. Reviewed chart. PT is recommending outpatient cardiac rehab. Family has been present today with patient. Case Management d/c poc: home with family support and outpatient cardiac rehab Case Management to follow. Date Signed: 08/18/2018 02:04 PM Electronically Signed By:Chelsea Cameron RN
[2018-08-18] MEDS: ATORVASTATIN CALCIUM 40 MG TAB PO SCH (20:08)
--- NOTE | 2018-08-18 21:46 | SOAPPROG ---
SOAP Progress Note Assessment/Plan: Assessment/Plan: This is a 68-year-old male with history of testicular cancer 40 years ago who is status post aortic valve replacement with concerns for HIT. 1. Thrombocytopenia: He has an intermittent risk for HIT via 4T score with the hit antibody high positive at 1.8 OD. He has been started on argatroban appropriately on 08/17; he is therapeutic currently. It is important he stays on argatroban and no attempt to bridge is made until platelet count has normalized. Guidelines recommend duplex U/S of LEs for HIT given have likelihood of thrombosis and that this would change duration of anticoagulation as outpatient. I will order this. In the meantime would continue argatroban and wait on IRENE although may consider treating as HIT despite negative IRENE given pretest probability and high Ab titer by OD. 2. Acute blood loss anemia: He did have a pericardial hemorrhage requiring drainage - likely post operative phenomenon. Agree with reassessing his echocardiogram to ensure that he has not reaccumulated blood at some point in the future. Yogi Victoria 08/18/18 21:41 08/18/18 21:49 Subjective: Patient reports feeling well. He has no complaints. No asymmetric swelling, no CP or SOB. No skin lesions/necrosis. No bleeding. Objective: Vital Signs Temp Pulse Resp BP Pulse Ox 37.0 C 65 20 136/75 H 95 08/18/18 20:00 08/18/18 20:09 08/18/18 20:00 08/18/18 20:09 08/18/18 20:00 Laboratory Results 08/18/18 06:30 08/18/18 06:30 08/17/18 08/18/18 08/19/18 05:59 05:59 05:59 Intake Total 2038 1200 663.2 Output Total 650 2700 625 Balance 1388 -1500 38.2 PT 18.0 SEC (12.0-15.0) H 08/18/18 06:30 INR 1.47 (0.83-1.16) H 08/18/18 06:30 General: Pleasant, no acute distress HEENT: Oropharynx is clear extraocular movements are intact pupils equal and reactive to light Cardiovascular: Regular rhythm, sternotomy incision is clean dry and intact Pulmonary: Clear to auscultation bilaterally Neuro: Moving all extremities, alert oriented x3 Skin: No skin lesions, small area of ecchymosis on abdomen Abdomen: Soft nontender nondistended bowel sounds are present Psych: Appropriate affect ICD10 Worksheet Patient Problems: Problems Problem Status Onset Anticoagulant-induced bleeding Acute Pericardial effusion Acute Chronic anticoagulation Chronic PAF (paroxysmal atrial fibrillation) Chronic S/P aortic valve replacement with bioprosthetic valve Chronic ~08/04/18
[2018-08-19] MEDS: ACETAMINOPHEN 325 MG TAB PO SCH ×5 (00:16→23:29)
--- NOTE | 2018-08-19 08:31 | SOAPPROG ---
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 h/o Paroxysmal atrial fibrillation and flutter with heart block and presence of AV PPM - Eliquis held - Continue BB/amiodarone DVT prophylaxis - SCDs Subjective: Feels well. Grateful for care. Objective: Vital Signs Temp Pulse Resp BP Pulse Ox 36.7 C 64 12 138/71 H 93 08/19/18 07:47 08/19/18 07:47 08/19/18 07:47 08/19/18 07:47 08/19/18 07:47 Laboratory Results 08/19/18 05:55 08/19/18 06:10 08/18/18 08/19/18 08/20/18 05:59 05:59 05:59 Intake Total 1200 913.2 Output Total 2700 1275 Balance -1500 -361.8 PT 18.0 SEC (12.0-15.0) H 08/18/18 06:30 INR 1.47 (0.83-1.16) H 08/18/18 06:30 Physical Exam - Physical Exam General Appearance: WD/WN, alert, no apparent distress EENT: No scleral icterus (R), No scleral icterus (L) Neck: normal inspection Respiratory: No respiratory distress Cardiac/Chest: other (paced) Abdomen: non-tender, soft, No distended Skin: normal color, warm/dry Extremities: No pedal edema Neuro/Psych: no motor/sensory deficits, alert, normal mood/affect, oriented x 3 ICD10 Worksheet Patient Problems: Problems Problem Status Onset Anticoagulant-induced bleeding Acute Pericardial effusion Acute Chronic anticoagulation Chronic PAF (paroxysmal atrial fibrillation) Chronic S/P aortic valve replacement with bioprosthetic valve Chronic ~08/04/18
[2018-08-19] MEDS: AMIODARONE HCL 200 MG TAB PO SCH (08:57)
[2018-08-19] MEDS: traMADol 50 MG TAB PO PRN (08:57)
[2018-08-19] MEDS: METOPROLOL TARTRATE 25 MG TAB PO SCH ×2 (08:57→20:20)
[2018-08-19] MEDS: FERROUS SULFATE 325 MG TAB PO SCH ×2 (08:57→20:12)
[2018-08-19] MEDS: SENNOSIDES/DOCUSATE SODIUM TAB PO SCH (09:00)
[2018-08-19] MEDS ORDERED: METOPROLOL TARTRATE 25 MG TAB PO ONE (09:03)
[2018-08-19] MEDS: ATORVASTATIN CALCIUM 40 MG TAB PO SCH (19:53)
--- NOTE | 2018-08-19 21:26 | SOAPPROG ---
SOAP Progress Note Assessment/Plan: Assessment/Plan: This is a 68-year-old male with history of testicular cancer 40 years ago who is status post aortic valve replacement with concerns for HIT. 1. Thrombocytopenia: He has an intermittent risk for HIT via 4T score with the hit antibody high positive at 1.8 OD. He has been started on argatroban appropriately on 08/17; he is therapeutic currently. It is important he stays on argatroban and no attempt to bridge is made until platelet count has normalized. Guidelines recommend duplex U/S of LEs for HIT given have likelihood of thrombosis and that this would change duration of anticoagulation as outpatient. This evaluation was unremarkable. In the meantime would continue argatroban and wait on IRENE although may consider treating as HIT despite negative IRENE given pretest probability and high Ab titer by OD. Changed protocol back to standard argatroban protocol now that bleeding less concerning/risk favors clotting at this point 2. Acute blood loss anemia: He did have a pericardial hemorrhage requiring drainage - likely post operative phenomenon. Follow-up echo re-assuring that no ongoing bleeding. Yogi Victoria 08/19/18 21:26 Subjective: Patient reports feeling well. U/S of legs was without clot. He denies any bleeding. NO CP or SOB. No rash. Objective: Vital Signs Temp Pulse Resp BP Pulse Ox 36.9 C 65 16 140/72 H 95 08/19/18 20:00 08/19/18 20:00 08/19/18 20:00 08/19/18 20:00 08/19/18 20:00 Laboratory Results 08/19/18 05:55 08/19/18 06:10 08/18/18 08/19/18 08/20/18 05:59 05:59 05:59 Intake Total 1200 913.2 1017 Output Total 2700 1275 100 Balance -1500 -361.8 917 PT 18.0 SEC (12.0-15.0) H 08/18/18 06:30 INR 1.47 (0.83-1.16) H 08/18/18 06:30 General: Pleasant, no acute distress HEENT: Oropharynx is clear extraocular movements are intact pupils equal and reactive to light Cardiovascular: Regular rhythm, sternotomy incision is clean dry and intact Pulmonary: Clear to auscultation bilaterally Neuro: Moving all extremities, alert oriented x3 Skin: No skin lesions, small area of ecchymosis on abdomen Abdomen: Soft nontender nondistended bowel sounds are present Psych: Appropriate affect ICD10 Worksheet Patient Problems: Problems Problem Status Onset Anticoagulant-induced bleeding Acute Pericardial effusion Acute Chronic anticoagulation Chronic PAF (paroxysmal atrial fibrillation) Chronic S/P aortic valve replacement with bioprosthetic valve Chronic ~08/04/18
[2018-08-20] MEDS: SENNOSIDES/DOCUSATE SODIUM TAB PO SCH ×2 (01:37→08:28)
[2018-08-20 05:14] LABS: PLATELET COUNT 48 10^3/uL (150-400)
[2018-08-20] MEDS: ACETAMINOPHEN 325 MG TAB PO SCH ×4 (06:18→23:26)
--- NOTE | 2018-08-20 07:03 | SOAPPROG ---
SOAP Progress Note Assessment/Plan: POD #7: Subxiphoid pericardial window, drainage of 600 cc sanguineous fluid Postoperative hemorrhagic pericardial effusion secondary to Eliquis use - CT out, repeat ECHO shows trivial effusion - Eliquis, ASA, NSAIDs, DVT prophylaxis held ARF secondary to low cardiac output from pericardial effusion and dehydration - Resolved AMS likely secondary to hypotension - CTH without acute findings - AMS resolved Acute blood loss anemia - s/p 1U PRBC Thrombocytopenia with +HIT panel - Platelets 48 - s/p 2U platelets transfused prior to HIT status being known - Continue Argatroban, further mgmt and transition to Coumadin as per Hematology - Monitor for bleeding h/o Severe aortic stenosis - s/p tissue valve replacement on 08/04 thru mini upper sternotomy - Antithrombotic prophylaxis with baby ASA held - Beta-claude for AF prophylaxis. h/o Paroxysmal atrial fibrillation and flutter with heart block and presence of AV PPM - Eliquis held - Continue BB/amiodarone DVT prophylaxis - SCDs Subjective: Feels well. Grateful for care. Objective: Vital Signs Temp Pulse Resp BP Pulse Ox 36.8 C 77 20 142/86 H 95 08/20/18 04:00 08/20/18 04:00 08/20/18 04:00 08/20/18 04:00 08/20/18 04:00 Laboratory Results 08/20/18 04:15 08/20/18 04:15 08/19/18 08/20/18 08/21/18 05:59 05:59 05:59 Intake Total 913.2 1568.6 Output Total 1275 800 Balance -361.8 768.6 PT 18.0 SEC (12.0-15.0) H 08/18/18 06:30 INR 1.47 (0.83-1.16) H 08/18/18 06:30 Physical Exam - Physical Exam General Appearance: WD/WN, alert, no apparent distress EENT: No scleral icterus (R), No scleral icterus (L) Neck: normal inspection Respiratory: No respiratory distress Cardiac/Chest: other (paced) Abdomen: non-tender, soft, No distended Skin: normal color, warm/dry Extremities: No pedal edema Neuro/Psych: no motor/sensory deficits, alert, normal mood/affect, oriented x 3 ICD10 Worksheet Patient Problems: Problems Problem Status Onset Anticoagulant-induced bleeding Acute Pericardial effusion Acute Chronic anticoagulation Chronic PAF (paroxysmal atrial fibrillation) Chronic S/P aortic valve replacement with bioprosthetic valve Chronic ~08/04/18
[2018-08-20] MEDS: FERROUS SULFATE 325 MG TAB PO SCH ×2 (08:29→20:26)
[2018-08-20] MEDS: METOPROLOL TARTRATE 25 MG TAB PO SCH ×2 (08:29→20:26)
[2018-08-20] MEDS: AMIODARONE HCL 200 MG TAB PO SCH (08:29)
--- NOTE | 2018-08-20 12:22 | ASMTCMCOM ---
CM Note CM Note Notes: 08/20/2018 Case Management Note Discussed with Marcelino RAY this morning. Anticipating d/c end of week or over the weekend. Case Management d/c poc: cardiac rehab Case Management to follow. Date Signed: 08/20/2018 12:21 PM Electronically Signed By:Chelsea Cameron RN
[2018-08-20] MEDS: TEARS/DEXTRAN 70/HYPROMELLOSE 15 ML OPHT.BTL EACHEYE PRN ×2 (13:48→22:39)
[2018-08-20] MEDS: ATORVASTATIN CALCIUM 40 MG TAB PO SCH (20:29)
--- NOTE | 2018-08-20 22:44 | SOAPPROG ---
[facility] Progress Note Assessment/Plan: Assessment/Plan: This is a 68-year-old male with history of testicular cancer 40 years ago who is status post aortic valve replacement with concerns for HIT. 1. Thrombocytopenia: He has an intermittent risk for HIT via 4T score with the hit antibody high positive at 1.8 OD. He has been started on argatroban appropriately on 08/17; he is therapeutic currently. It is important he stays on argatroban and no attempt to bridge is made until platelet count has normalized. Guidelines recommend duplex U/S of LEs for HIT given have likelihood of thrombosis and that this would change duration of anticoagulation as outpatient. This evaluation was unremarkable. In the meantime would continue argatroban and wait on IRENE although may consider treating as HIT despite negative IRENE given pretest probability and high Ab titer by OD. His platelet count should be improving at this point, somewhat curiously it hasn't and may mean that independent process may also be at work. I don't have a sense of what that other process may be, frankly. Will continue to watch his blood counts. 2. Acute blood loss anemia: He did have a pericardial hemorrhage requiring drainage - likely post operative phenomenon. Follow-up echo re-assuring that no ongoing bleeding. [facility] Subjective: Patient reports feeling well without complaints. NO bleeding. No CP or SOB. Objective: Vital Signs Temp Pulse Resp BP Pulse Ox 37.1 C 87 16 115/68 93 08/20/18 20:00 08/20/18 20:26 08/20/18 20:00 08/20/18 20:26 08/20/18 20:00 Laboratory Results 08/20/18 04:15 08/20/18 04:15 08/19/18 08/20/18 08/21/18 05:59 05:59 05:59 Intake Total 913.2 1568.6 1175.8 Output Total 1275 800 500 Balance -361.8 768.6 675.8 PT 18.0 SEC (12.0-15.0) H 08/18/18 06:30 INR 1.47 (0.83-1.16) H 08/18/18 06:30 General: Pleasant, no acute distress HEENT: Oropharynx is clear extraocular movements are intact pupils equal and reactive to light Cardiovascular: Regular rhythm, sternotomy incision is clean dry and intact Pulmonary: Clear to auscultation bilaterally Neuro: Moving all extremities, alert oriented x3 Skin: No skin lesions, small area of ecchymosis on abdomen Abdomen: Soft nontender nondistended bowel sounds are present Psych: Appropriate affect ICD10 Worksheet Patient Problems: Problems Problem Status Onset Anticoagulant-induced bleeding Acute Pericardial effusion Acute Chronic anticoagulation Chronic PAF (paroxysmal atrial fibrillation) Chronic S/P aortic valve replacement with bioprosthetic valve Chronic ~08/04/18
[2018-08-21] MEDS: ARGATROBAN 250 MG in D5W 250 ML IV SCH (04:19)
[2018-08-21] MEDS: ACETAMINOPHEN 325 MG TAB PO SCH ×4 (05:45→23:46)
--- NOTE | 2018-08-21 07:15 | SOAPPROG ---
SOAP Progress Note Assessment/Plan: POD #8: Subxiphoid pericardial window, drainage of 600 cc sanguineous fluid Postoperative hemorrhagic pericardial effusion secondary to Eliquis use - CT out, repeat ECHO shows trivial effusion - Eliquis, ASA, NSAIDs, DVT prophylaxis held ARF secondary to low cardiac output from pericardial effusion and dehydration - Resolved AMS likely secondary to hypotension - CTH without acute findings - AMS resolved Acute blood loss anemia - s/p 1U PRBC Thrombocytopenia with +HIT panel - Platelets rebounding - s/p 2U platelets transfused prior to HIT status being known - Continue Argatroban, further mgmt and transition to Coumadin as per Hematology - Monitor for bleeding h/o Severe aortic stenosis - s/p tissue valve replacement on 08/04 thru mini upper sternotomy - Antithrombotic prophylaxis with baby ASA held - Beta-claude for AF prophylaxis. h/o Paroxysmal atrial fibrillation and flutter with heart block and presence of AV PPM - Eliquis held - Continue BB/amiodarone DVT prophylaxis - SCDs Subjective: Feels well. No complaints. Objective: Vital Signs Temp Pulse Resp BP Pulse Ox 36.8 C 68 20 120/73 96 08/21/18 03:53 08/21/18 03:53 08/21/18 03:53 08/21/18 03:53 08/21/18 03:53 Laboratory Results 08/21/18 04:15 08/20/18 04:15 08/20/18 08/21/18 08/22/18 05:59 05:59 05:59 Intake Total 1568.6 1575.8 Output Total 800 1350 Balance 768.6 225.8 PT 18.0 SEC (12.0-15.0) H 08/18/18 06:30 INR 1.47 (0.83-1.16) H 08/18/18 06:30 Physical Exam - Physical Exam General Appearance: WD/WN, alert, no apparent distress EENT: No scleral icterus (R), No scleral icterus (L) Neck: normal inspection Respiratory: No respiratory distress Cardiac/Chest: other (paced) Abdomen: non-tender, soft, No distended Skin: normal color, warm/dry Extremities: No pedal edema Neuro/Psych: no motor/sensory deficits, alert, normal mood/affect, oriented x 3 ICD10 Worksheet Patient Problems: Problems Problem Status Onset Anticoagulant-induced bleeding Acute Pericardial effusion Acute Chronic anticoagulation Chronic PAF (paroxysmal atrial fibrillation) Chronic S/P aortic valve replacement with bioprosthetic valve Chronic ~08/04/18
[2018-08-21] MEDS: METOPROLOL TARTRATE 25 MG TAB PO SCH ×2 (09:58→20:36)
[2018-08-21] MEDS: FERROUS SULFATE 325 MG TAB PO SCH ×2 (09:59→20:36)
[2018-08-21] MEDS: AMIODARONE HCL 200 MG TAB PO SCH (09:59)
[2018-08-21] MEDS: TEARS/DEXTRAN 70/HYPROMELLOSE 15 ML OPHT.BTL EACHEYE PRN ×2 (10:02→19:30)
[2018-08-21] MEDS ORDERED: ALTEPLASE 2 MG VIAL IVP PRN (12:22)
--- NOTE | 2018-08-21 18:43 | SOAPPROG ---
SOAP Progress Note Assessment/Plan: Assessment/Plan: This is a 68-year-old male with history of testicular cancer 40 years ago who is status post aortic valve replacement with concerns for HIT. 1. Thrombocytopenia: He has an intermittent risk for HIT via 4T score with the hit antibody high positive at 1.8 OD. He has been started on argatroban appropriately on 08/17; he is therapeutic currently. It is important he stays on argatroban and no attempt to bridge is made until platelet count has normalized. Guidelines recommend duplex U/S of LEs for HIT given have likelihood of thrombosis and that this would change duration of anticoagulation as outpatient. This evaluation was unremarkable. In the meantime would continue argatroban and wait on IRENE although may consider treating as HIT despite negative IRENE given high pretest probability and high Ab titer by OD. His platelet count finally went up today. -CBC in AM, will consider coumadin when plt count >100,000 2. Acute blood loss anemia: He did have a pericardial hemorrhage requiring drainage - likely post operative phenomenon. Follow-up echo re-assuring that no ongoing bleeding. H&H has since been stable Yogi Victoria 08/21/18 18:41 Subjective: Patient reports feeling well without complaints. No new symptoms, no bleeding. No extremity swelling, CP or SOB. Objective: Vital Signs Temp Pulse Resp BP Pulse Ox 36.8 C 73 20 137/84 H 95 08/21/18 16:00 08/21/18 16:00 08/21/18 16:00 08/21/18 16:00 08/21/18 16:00 Laboratory Results 08/21/18 04:15 08/20/18 04:15 08/20/18 08/21/18 08/22/18 05:59 05:59 05:59 Intake Total 1568.6 1575.8 291.6 Output Total 800 1350 550 Balance 768.6 225.8 -258.4 PT 18.0 SEC (12.0-15.0) H 08/18/18 06:30 INR 1.47 (0.83-1.16) H 08/18/18 06:30 General: Pleasant, no acute distress HEENT: Oropharynx is clear extraocular movements are intact pupils equal and reactive to light Cardiovascular: Regular rhythm, sternotomy incision is clean dry and intact Pulmonary: Clear to auscultation bilaterally Neuro: Moving all extremities, alert oriented x3 Skin: No skin lesions Abdomen: Soft nontender nondistended bowel sounds are present Psych: Appropriate affect ICD10 Worksheet Patient Problems: Problems Problem Status Onset Anticoagulant-induced bleeding Acute Pericardial effusion Acute Chronic anticoagulation Chronic PAF (paroxysmal atrial fibrillation) Chronic S/P aortic valve replacement with bioprosthetic valve Chronic ~08/04/18
[2018-08-21] MEDS: ATORVASTATIN CALCIUM 40 MG TAB PO SCH (20:36)
--- NOTE | 2018-08-22 08:54 | SOAPPROG ---
SOAP Progress Note Assessment/Plan: Assessment: POD #9 Subxiphoid pericardial window, drainage of 660 cc sanguineous fluid IV access PICC Postoperative hemorrhagic pericardial effusion secondary to Eliquis use - CT out, repeat ECHO shows trivial effusion - Eliquis, ASA, NSAIDs, Sq hep held ARF secondary to low cardiac output from pericardial effusion and dehydration - Resolved AMS likely secondary to hypotension - CTH without acute findings - AMS resolved Acute blood loss anemia - Stable s/p 1U PRBC - VTE prophylaxis with SCDs Thrombocytopenia with +HIT panel - s/p 2U platelets transfused prior to HIT status being known. - Platelet count stable but yet to rise much on Argatroban, further mgmt and transition to Coumadin as per Hematology - Monitor for bleeding h/o Severe aortic stenosis - s/p tissue valve replacement on 08/04 thru mini upper sternotomy - Antithrombotic prophylaxis with baby ASA held - Beta-claude for AF prophylaxis. h/o Paroxysmal atrial fibrillation and flutter with heart block and presence of AV PPM - fluctuating between sinus or paced rhythm on BB/amio - Eliquis d/cd. Antithrombotic prophylaxis to be switched to Coumadin on argatroban bridge when plts > 100. Plan: Cont current supportive therapies 08/22/18 08:51 Subjective: Improving strength and stamina. Retaining patience. Hopeful for home by Thanksgiving. Objective: Vital Signs Temp Pulse Resp BP Pulse Ox 37.1 C 65 14 131/84 H 96 08/22/18 07:46 08/22/18 07:46 08/22/18 07:46 08/22/18 07:46 08/22/18 07:46 Laboratory Results 08/22/18 04:30 08/20/18 04:15 08/21/18 08/22/18 08/23/18 05:59 05:59 05:59 Intake Total 1575.8 541.6 Output Total 1350 850 Balance 225.8 -308.4 PT 18.0 SEC (12.0-15.0) H 08/18/18 06:30 INR 1.47 (0.83-1.16) H 08/18/18 06:30 Cardioresp status stable. Adequate fluid balance. Plt count stable but yet to exceed 60. Physical Exam - Physical Exam General Appearance: alert, no apparent distress Respiratory: lungs clear Cardiac/Chest: regular rate, rhythm, other (sternotomy and subxiphoid incisions CDI) Abdomen: soft Skin: warm/dry Extremities: other (trace dependent edema) ICD10 Worksheet Patient Problems: Problems Problem Status Onset Anticoagulant-induced bleeding Acute Pericardial effusion Acute Chronic anticoagulation Chronic PAF (paroxysmal atrial fibrillation) Chronic S/P aortic valve replacement with bioprosthetic valve Chronic ~08/04/18
[2018-08-22] MEDS: ACETAMINOPHEN 325 MG TAB PO SCH ×4 (09:06→23:46)
[2018-08-22] MEDS: METOPROLOL TARTRATE 25 MG TAB PO SCH ×2 (09:07→21:37)
[2018-08-22] MEDS: AMIODARONE HCL 200 MG TAB PO SCH (09:07)
[2018-08-22] MEDS: FERROUS SULFATE 325 MG TAB PO SCH ×2 (09:07→21:37)
[2018-08-22] MEDS: TEARS/DEXTRAN 70/HYPROMELLOSE 15 ML OPHT.BTL EACHEYE PRN ×3 (12:06→21:46)
--- NOTE | 2018-08-22 18:48 | SOAPPROG ---
SOAP Progress Note Assessment/Plan: Assessment/Plan: This is a 68-year-old male with history of testicular cancer 40 years ago who is status post aortic valve replacement with concerns for HIT. 1. Thrombocytopenia: He has an intermittent risk for HIT via 4T score with the hit antibody high positive at 1.8 OD. He has been started on argatroban appropriately on 08/17; he is therapeutic currently. It is important he stays on argatroban and no attempt to bridge is made until platelet count has normalized. Guidelines recommend duplex U/S of LEs for HIT given have likelihood of thrombosis and that this would change duration of anticoagulation as outpatient. This evaluation was unremarkable. In the meantime would continue argatroban and wait on IRENE although may consider treating as HIT despite negative IRENE given high pretest probability and high Ab titer by OD. His platelet count finally went up today. -CBC in AM, will consider coumadin when plt count >100,000 -Follow-up IRENE 2. Acute blood loss anemia: He did have a pericardial hemorrhage requiring drainage - likely post operative phenomenon. Follow-up echo re-assuring that no ongoing bleeding. H&H has since been stable Yogi Victoria 08/21/18 18:41 08/22/18 18:47 Subjective: Patient reports feeling well without complaints. NO fevers chills or sweats. No bleeding. PICC line placed, right IJ removed. Objective: Vital Signs Temp Pulse Resp BP Pulse Ox 36.9 C 63 16 129/85 H 97 08/22/18 16:00 08/22/18 16:00 08/22/18 16:00 08/22/18 16:00 08/22/18 16:00 Laboratory Results 08/22/18 04:30 08/20/18 04:15 08/21/18 08/22/18 08/23/18 05:59 05:59 05:59 Intake Total 1575.8 541.6 1051.6 Output Total 1350 850 800 Balance 225.8 -308.4 251.6 PT 18.0 SEC (12.0-15.0) H 08/18/18 06:30 INR 1.47 (0.83-1.16) H 08/18/18 06:30 General: Pleasant, no acute distress HEENT: Oropharynx is clear extraocular movements are intact pupils equal and reactive to light Cardiovascular: Regular rhythm, sternotomy incision is clean dry and intact Pulmonary: Clear to auscultation bilaterally Neuro: Moving all extremities, alert oriented x3 Skin: No skin lesions, right PICC line, bandage at right IJ site (removed) Abdomen: Soft nontender nondistended bowel sounds are present Psych: Appropriate affect ICD10 Worksheet Patient Problems: Problems Problem Status Onset Anticoagulant-induced bleeding Acute Pericardial effusion Acute Chronic anticoagulation Chronic PAF (paroxysmal atrial fibrillation) Chronic S/P aortic valve replacement with bioprosthetic valve Chronic ~08/04/18
[2018-08-22] MEDS: ATORVASTATIN CALCIUM 40 MG TAB PO SCH (21:37)
[2018-08-23] MEDS: ACETAMINOPHEN 325 MG TAB PO SCH ×4 (05:18→23:33)
[2018-08-23] MEDS: METOPROLOL TARTRATE 25 MG TAB PO SCH ×2 (08:09→20:06)
[2018-08-23] MEDS: FERROUS SULFATE 325 MG TAB PO SCH ×2 (08:09→20:06)
[2018-08-23] MEDS: AMIODARONE HCL 200 MG TAB PO SCH (08:09)
--- NOTE | 2018-08-23 09:59 | SOAPPROG ---
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 - Platelet count stable but yet to rise much on Argatroban, further mgmt and transition to Coumadin as per Hematology - Monitor for bleeding h/o Severe aortic stenosis - s/p tissue valve replacement on 08/04 thru mini upper sternotomy - Antithrombotic prophylaxis with baby ASA held - Beta-claude for AF prophylaxis. h/o Paroxysmal atrial fibrillation and flutter with heart block and presence of AV PPM - fluctuating between sinus or paced rhythm on BB/amio - Eliquis d/cd. Antithrombotic prophylaxis to be switched to Coumadin on argatroban bridge when plts > 100. Dispo: Encourage hydration (BUN 24, Cr 1.4) Awaiting plt count >100 Continue supportive cares Subjective: Frustrated about platelet count. No other concerns Objective: Vital Signs Temp Pulse Resp BP Pulse Ox 36.9 C 61 16 116/83 H 95 08/23/18 07:55 08/23/18 07:55 08/23/18 07:55 08/23/18 07:55 08/23/18 07:55 Laboratory Results 08/23/18 05:20 08/23/18 05:20 08/22/18 08/23/18 08/24/18 05:59 05:59 05:59 Intake Total 541.6 1551.6 Output Total 850 2000 150 Balance -308.4 -448.4 -150 PT 18.0 SEC (12.0-15.0) H 08/18/18 06:30 INR 1.47 (0.83-1.16) H 08/18/18 06:30 General: NAD, sitting upright HEENT: PICC, MMM Resp: no audible wheezes Cardiac: paced, no m/r/g, no edema GI: soft, nt, nd Incisions: sternum CDI ICD10 Worksheet Patient Problems: Problems Problem Status Onset Anticoagulant-induced bleeding Acute Pericardial effusion Acute Chronic anticoagulation Chronic PAF (paroxysmal atrial fibrillation) Chronic S/P aortic valve replacement with bioprosthetic valve Chronic ~08/04/18
--- NOTE | 2018-08-23 11:33 | SOAPPROG ---
SOAP Progress Note Assessment/Plan: Assessment: This is a 68-year-old male with history of testicular cancer 40 years ago who is status post aortic valve replacement with concerns for HIT. 1. Thrombocytopenia: He has an intermittent risk for HIT via 4T score with the hit antibody high positive at 1.853. He has been started on argatroban appropriately on 08/17; he is therapeutic currently. It is important he stays on argatroban and no attempt to bridge is made until platelet count has normalized. Guidelines recommend duplex U/S of LEs for HIT given have likelihood of thrombosis and that this would change duration of anticoagulation as outpatient. This evaluation was unremarkable. In the meantime would continue argatroban and wait on IRENE although may consider treating as HIT despite negative IRENE given high pretest probability and high Ab titer by OD. His platelet count is 60k today, hct 27 -CBC in AM, will consider coumadin when plt count >100,000 -Follow-up IRENE 2. Acute blood loss anemia: He did have a pericardial hemorrhage requiring drainage - likely post operative phenomenon. Follow-up echo re-assuring that no ongoing bleeding. H&H has since been stable Plan: 08/23/18 11:32 08/23/18 12:19 Subjective: Feels ok Objective: Vital Signs Temp Pulse Resp BP Pulse Ox 98.5 F 61 16 116/83 H 95 08/23/18 07:55 08/23/18 07:55 08/23/18 07:55 08/23/18 07:55 08/23/18 07:55 Laboratory Results 08/23/18 05:20 08/23/18 05:20 08/22/18 08/23/18 08/24/18 05:59 05:59 05:59 Intake Total 541.6 1551.6 Output Total 850 1999 325 Balance -308.4 -448.4 -325 PT 18.0 SEC (12.0-15.0) H 08/18/18 06:30 INR 1.47 (0.83-1.16) H 08/18/18 06:30 ICD10 Worksheet Patient Problems: Problems Problem Status Onset Anticoagulant-induced bleeding Acute Pericardial effusion Acute Chronic anticoagulation Chronic PAF (paroxysmal atrial fibrillation) Chronic S/P aortic valve replacement with bioprosthetic valve Chronic ~08/04/18
--- NOTE | 2018-08-23 11:51 | ASMTCMCOM ---
CM Note CM Note Notes: Patient requires continued hospital admission for platelet count <100 and Agatroban drip. Otherwise, he is doing well and eager to go home. No d/c needs at this time. Date Signed: 08/23/2018 11:50 AM Electronically Signed By:Adele Huynh RN
[2018-08-23] MEDS: ARGATROBAN 250 MG in D5W 250 ML IV SCH (16:14)
[2018-08-23] MEDS: TEARS/DEXTRAN 70/HYPROMELLOSE 15 ML OPHT.BTL EACHEYE PRN (16:16)
[2018-08-23] MEDS: ATORVASTATIN CALCIUM 40 MG TAB PO SCH (20:06)
[2018-08-24] MEDS: ACETAMINOPHEN 325 MG TAB PO SCH ×4 (05:11→23:54)
[2018-08-24] MEDS: METOPROLOL TARTRATE 25 MG TAB PO SCH ×2 (08:22→19:35)
[2018-08-24] MEDS: AMIODARONE HCL 200 MG TAB PO SCH (08:23)
[2018-08-24] MEDS: FERROUS SULFATE 325 MG TAB PO SCH ×2 (08:23→19:35)
--- NOTE | 2018-08-24 08:54 | SOAPPROG ---
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 - Platelet count stable but yet to rise much on Argatroban, further mgmt and transition to Coumadin as per Hematology - Monitor for bleeding h/o Severe aortic stenosis - s/p tissue valve replacement on 08/04 thru mini upper sternotomy - Antithrombotic prophylaxis with baby ASA held - Beta-claude for AF prophylaxis. h/o Paroxysmal atrial fibrillation and flutter with heart block and presence of AV PPM - fluctuating between sinus or paced rhythm on BB/amio - Eliquis d/cd. Antithrombotic prophylaxis to be switched to Coumadin on argatroban bridge when plts > 100. Dispo: Recheck BMP tomorrow Awaiting plt count >100 Continue supportive cares Subjective: Frustrated with today's platelet numbers Objective: Vital Signs Temp Pulse Resp BP Pulse Ox 37.0 C 63 18 121/71 H 93 08/24/18 07:47 08/24/18 07:47 08/24/18 07:47 08/24/18 07:47 08/24/18 07:47 Laboratory Results 08/24/18 05:15 08/23/18 05:20 08/23/18 08/24/18 08/25/18 05:59 05:59 05:59 Intake Total 1551.6 386 163 Output Total 1999 1175 250 Balance -448.4 -789 -87 PT 18.0 SEC (12.0-15.0) H 08/18/18 06:30 INR 1.47 (0.83-1.16) H 08/18/18 06:30 General: NAD, sitting upright HEENT: PICC, MMM Resp: no audible wheezes Cardiac: paced, no m/r/g, no edema GI: soft, nt, nd Incisions: sternum & window incision CDI ICD10 Worksheet Patient Problems: Problems Problem Status Onset Anticoagulant-induced bleeding Acute Pericardial effusion Acute Chronic anticoagulation Chronic PAF (paroxysmal atrial fibrillation) Chronic S/P aortic valve replacement with bioprosthetic valve Chronic ~08/04/18
--- NOTE | 2018-08-24 12:10 | SOAPPROG ---
PATY Progress Note Assessment/Plan: Assessment: This is a 68-year-old male with history of testicular cancer 40 years ago who is status post aortic valve replacement with concerns for HIT. 1. Thrombocytopenia: It is certainly frustrating that his platelets have remained down, I have seen in the past certainly a slow response to this therapy. There is an possibility as to whether there is some other cause of his thrombocytopenia, I note that his platelet count was normal preoperatively so this does not seem to be a chronic issue. I think it is unlikely that he developed an unrelated autoimmune thrombocytopenia over this period of time. His white cells are normal with an unremarkable differential, he he is clearly anemic at this point time but had a normal hemoglobin and hematocrit preop, so I think a bone marrow production problem is unlikely. If the situation does not clarify itself an empiric trial of steroids and/or a bone marrow biopsy could be a consideration. The serotonin release assay is generally quite specific and sensitive for HIT so I would await the results of that. If it is positive I think that is confirmatory of the diagnosis of HIT and continuation of agatroban with transition to warfarin when appropriate would still be the best plan of action. 2. Acute blood loss anemia: He did have a pericardial hemorrhage requiring drainage - likely post operative phenomenon. Follow-up echo re-assuring that no ongoing bleeding. H&H has since been stable Plan:See above 08/23/18 11:32 08/23/18 12:19 08/24/18 12:01 Subjective: Frustrated Objective: Vital Signs Temp Pulse Resp BP Pulse Ox 98.6 F 63 18 121/71 H 93 08/24/18 07:47 08/24/18 07:47 08/24/18 07:47 08/24/18 07:47 08/24/18 07:47 Laboratory Results 08/24/18 05:15 08/23/18 05:20 08/23/18 08/24/18 08/25/18 05:59 05:59 05:59 Intake Total 1551.6 386 163 Output Total 1999 1175 250 Balance -448.4 -789 -87 PT 18.0 SEC (12.0-15.0) H 08/18/18 06:30 INR 1.47 (0.83-1.16) H 08/18/18 06:30 ICD10 Worksheet Patient Problems: Problems Problem Status Onset Anticoagulant-induced bleeding Acute Pericardial effusion Acute Chronic anticoagulation Chronic PAF (paroxysmal atrial fibrillation) Chronic S/P aortic valve replacement with bioprosthetic valve Chronic ~08/04/18
[2018-08-24] MEDS: ARGATROBAN 250 MG in D5W 250 ML IV SCH (16:06)
[2018-08-24] MEDS: ATORVASTATIN CALCIUM 40 MG TAB PO SCH (19:35)
[2018-08-25] MEDS: FERROUS SULFATE 325 MG TAB PO SCH ×2 (09:41→20:46)
[2018-08-25] MEDS: ACETAMINOPHEN 325 MG TAB PO SCH ×4 (09:41→23:52)
[2018-08-25] MEDS: METOPROLOL TARTRATE 25 MG TAB PO SCH ×2 (09:41→20:46)
[2018-08-25] MEDS: AMIODARONE HCL 200 MG TAB PO SCH (10:09)
--- NOTE | 2018-08-25 10:34 | SOAPPROG ---
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 - Platelet count stable but yet to rise much on Argatroban, further mgmt and transition to Coumadin as per Hematology - Monitor for bleeding h/o Severe aortic stenosis - s/p tissue valve replacement on 08/04 thru mini upper sternotomy - Antithrombotic prophylaxis with baby ASA held - Beta-claude for AF prophylaxis. h/o Paroxysmal atrial fibrillation and flutter with heart block and presence of AV PPM - fluctuating between sinus or paced rhythm on BB - stable - Eliquis d/cd. Antithrombotic prophylaxis to be switched to Coumadin on argatroban bridge when plts > 100. Dispo: Daily plt count Stop amiodarone - although unlikely can cause thrombocytopenia Further mgmt per Hematology whether steroids vs. bone marrow biopsy Subjective: Platelets 51 Objective: Vital Signs Temp Pulse Resp BP Pulse Ox 36.8 C 65 16 155/85 H 95 08/25/18 07:15 08/25/18 07:15 08/25/18 07:15 08/25/18 07:15 08/25/18 07:15 Laboratory Results 08/25/18 04:30 08/25/18 04:30 08/24/18 08/25/18 08/26/18 05:59 05:59 05:59 Intake Total 386 1036 240 Output Total 1175 1000 1100 Balance -789 36 -860 PT 18.0 SEC (12.0-15.0) H 08/18/18 06:30 INR 1.47 (0.83-1.16) H 08/18/18 06:30 General: NAD, sitting upright HEENT: PICC, MMM Resp: no audible wheezes Cardiac: paced, no m/r/g, no edema GI: soft, nt, nd Incisions: sternum & window incision CDI ICD10 Worksheet Patient Problems: Problems Problem Status Onset Anticoagulant-induced bleeding Acute Pericardial effusion Acute Chronic anticoagulation Chronic PAF (paroxysmal atrial fibrillation) Chronic S/P aortic valve replacement with bioprosthetic valve Chronic ~08/04/18
[2018-08-25] MEDS: ARGATROBAN 250 MG in NS 250 ML IV SCH (13:49)
--- NOTE | 2018-08-25 18:01 | SOAPPROG ---
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 There is an possibility as to whether there is some other cause of his thrombocytopenia, although his platelet count was normal preoperatively. Acute ITP seems unlikely. WBC is normal with nl diff; he has anemia but not uncommon post op. If the situation does not clarify itself an empiric trial of steroids and/or a bone marrow biopsy could be a consideration. The serotonin release assay is generally quite specific and sensitive for HIT so awaiting the results of that. If it is positive than is confirmatory of the diagnosis of HIT and continuation of agatroban with transition to warfarin when appropriate would still be the best plan of action. * Acute blood loss anemia: He did have a pericardial hemorrhage requiring drainage - likely post operative phenomenon. Follow-up echo re-assuring; H&H has since been stable * Testicular cancer 40 years ago * S/P aortic valve replacement Subjective: Feeling fine without complaints Objective: Vital Signs Temp Pulse Resp BP Pulse Ox 37.0 C 63 16 143/78 H 95 08/25/18 16:00 08/25/18 16:00 08/25/18 16:00 08/25/18 16:00 08/25/18 16:00 Laboratory Results 08/25/18 04:30 08/25/18 04:30 08/24/18 08/25/18 08/26/18 05:59 05:59 05:59 Intake Total 386 1036 830 Output Total 1175 1000 1850 Balance -789 36 -1020 PT 18.0 SEC (12.0-15.0) H 08/18/18 06:30 INR 1.47 (0.83-1.16) H 08/18/18 06:30 Laboratory Tests 08/23/18 08/24/18 08/25/18 05:20 05:15 04:30 WBC 5.81 5.20 5.50 Hgb 9.0 L 8.7 L 8.9 L Plt Count 60 L 53 L 51 L Physical Exam - Physical Exam General Appearance: no apparent distress Respiratory: lungs clear Cardiac/Chest: regular rate, rhythm ICD10 Worksheet Patient Problems: Problems Problem Status Onset Anticoagulant-induced bleeding Acute Pericardial effusion Acute Chronic anticoagulation Chronic PAF (paroxysmal atrial fibrillation) Chronic S/P aortic valve replacement with bioprosthetic valve Chronic ~08/04/18
[2018-08-25] MEDS: ATORVASTATIN CALCIUM 40 MG TAB PO SCH (20:46)
[2018-08-26] MEDS: ACETAMINOPHEN 325 MG TAB PO SCH (05:10)
[2018-08-26] MEDS: METOPROLOL TARTRATE 25 MG TAB PO SCH ×2 (09:00→19:45)
[2018-08-26] MEDS: FERROUS SULFATE 325 MG TAB PO SCH ×2 (09:00→19:45)
[2018-08-26] MEDS: ACETAMINOPHEN 325 MG TAB PO PRN ×2 (11:43→19:45)
--- NOTE | 2018-08-26 12:36 | SOAPPROG ---
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 There is an possibility this might also be contributed to all the previous chemo leading to slow recovery. His pre-op platelets were normal but right at the lowest range. Acute ITP seems unlikely. WBC is normal with nl diff; he has anemia but not uncommon post op and in patients with low testosterone. If the situation does not clarify itself an empiric trial of steroids and/or a bone marrow biopsy could be a consideration, but not at this time. The serotonin release assay is generally quite specific and sensitive for HIT so awaiting the results of that. If it is positive than is confirmatory of the diagnosis of HIT and continuation of agatroban with transition to warfarin when appropriate would still be the best plan of action. * Acute blood loss anemia: He did have a pericardial hemorrhage requiring drainage - likely post operative phenomenon. Follow-up echo re-assuring; H&H has since been stable * Testicular cancer 40 years ago: 2 separate episodes: 1st treated with orchiectomy then 1 year of chemo (BEP-like?); 2nd was 2 years later treated with orchiectomy and similar chemo. * S/P aortic valve replacement Subjective: Doing about the same without new complaints. in the room. Objective: Vital Signs Temp Pulse Resp BP Pulse Ox 36.8 C 64 16 127/84 H 98 08/26/18 11:24 08/26/18 11:24 08/26/18 11:24 08/26/18 11:24 08/26/18 11:24 Laboratory Results 08/26/18 05:19 08/25/18 04:30 08/25/18 08/26/18 08/27/18 05:59 05:59 05:59 Intake Total 1036 1224 740 Output Total 1000 2625 600 Balance 36 -1401 140 PT 18.0 SEC (12.0-15.0) H 08/18/18 06:30 INR 1.47 (0.83-1.16) H 08/18/18 06:30 Physical Exam - Physical Exam General Appearance: no apparent distress ICD10 Worksheet Patient Problems: Problems Problem Status Onset Anticoagulant-induced bleeding Acute Pericardial effusion Acute Chronic anticoagulation Chronic PAF (paroxysmal atrial fibrillation) Chronic S/P aortic valve replacement with bioprosthetic valve Chronic ~08/04/18
--- NOTE | 2018-08-26 14:39 | SOAPPROG ---
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 - Platelet count stable but yet to rise much on Argatroban, further mgmt and transition to Coumadin as per Hematology - Monitor for bleeding h/o Severe aortic stenosis - s/p tissue valve replacement on 08/04 thru mini upper sternotomy - Antithrombotic prophylaxis with baby ASA held - Beta-claude for AF prophylaxis. h/o Paroxysmal atrial fibrillation and flutter with heart block and presence of AV PPM - fluctuating between sinus or paced rhythm on BB - stable - Eliquis d/cd. Antithrombotic prophylaxis to be switched to Coumadin on argatroban bridge when plts > 100. Dispo: Daily plt count Further mgmt per Hematology whether steroids vs. bone marrow biopsy Subjective: No change Objective: Vital Signs Temp Pulse Resp BP Pulse Ox 36.8 C 64 16 127/84 H 98 08/26/18 11:24 08/26/18 11:24 08/26/18 11:24 08/26/18 11:24 08/26/18 11:24 Laboratory Results 08/26/18 05:19 08/25/18 04:30 08/25/18 08/26/18 08/27/18 05:59 05:59 05:59 Intake Total 1036 1224 740 Output Total 1000 2625 600 Balance 36 -1401 140 PT 18.0 SEC (12.0-15.0) H 08/18/18 06:30 INR 1.47 (0.83-1.16) H 08/18/18 06:30 General: NAD HEENT: PICC, MMM Resp: no audible wheezes Cardiac: paced, no m/r/g, no edema GI: soft, nt, nd Incisions: sternum & window incision CDI ICD10 Worksheet Patient Problems: Problems Problem Status Onset Anticoagulant-induced bleeding Acute Pericardial effusion Acute Chronic anticoagulation Chronic PAF (paroxysmal atrial fibrillation) Chronic S/P aortic valve replacement with bioprosthetic valve Chronic ~08/04/18
--- NOTE | 2018-08-26 15:06 | ASMTCMCOM ---
CM Note CM Note Notes: Pt continues to requires treatment. No CM needs anticipated; CM will follow for changes. D/C Plan: Independent. Date Signed: 08/26/2018 03:05 PM Electronically Signed By:Shabana Coleman
[2018-08-26] MEDS: ARGATROBAN 250 MG in NS 250 ML IV SCH (16:50)
[2018-08-26] MEDS: ATORVASTATIN CALCIUM 40 MG TAB PO SCH (19:45)
[2018-08-27] MEDS: ACETAMINOPHEN 325 MG TAB PO PRN ×4 (03:23→22:34)
[2018-08-27] MEDS: METOPROLOL TARTRATE 25 MG TAB PO SCH ×2 (08:29→22:34)
--- NOTE | 2018-08-27 09:15 | SOAPPROG ---
SOAP Progress Note Assessment/Plan: Assessment: POD#14 Subxiphoid pericardial window, drainage of 660 cc sanguineous fluid ~ 1 mo s/p mini AVR #25 Intuity Elite sutureless bioprosthesis via inverse T upper sternotomy & prophylactic AtriClip exclusion left atrial appendage IV access PICC Postoperative hemorrhagic pericardial effusion secondary to Eliquis use - ECHO post CT removal neg for reaccumulation of effusion. - Eliquis, ASA, NSAIDs, SQ hep held ARF secondary to low cardiac output from pericardial effusion and dehydration - Resolved Postoperative AMS - exacerbated by cardiogenic shock; CTH negative for acute findings - no ongoing issues Acute blood loss anemia - Stable s/p 1U PRBC and course of Fe suppl - VTE prophylaxis with SCDs Drug induced thrombocytopenia - +HIT panel and confirmatory IRENE - Started on Argatroban 08/17. Platelet count stable but yet to rise much; IVIG , steroids and/or bone marrow bx deferred to hematology. - Screening for thrombosis/DVT neg. - No evidence active bleeding by serial H/H. Presence of bioprosthetic aortic valve - Nl fx demonstrated by echo - Antithrombotic prophylaxis with baby ASA on hold h/o Paroxysmal atrial fibrillation and flutter with heart block and presence of AV PPM - predominant rhythm this admission paced. No AF. - AF prophylaxis with BB. Adjunctive amio d/cd last week in case contributing to thrombocytopenia. - Antithrombotic prophylaxis w Coumadin when plts > 100. Target INR 2 as MARTA excluded. Argatroban bridge per hematology. Plan: Cont current supportive therapies and monitoring. 08/27/18 09:15 Subjective: Bored. Tiring of being in hospital. Would like to walk outside. Objective: Vital Signs Temp Pulse Resp BP Pulse Ox 36.8 C 68 19 152/75 H 97 08/27/18 07:47 08/27/18 07:47 08/27/18 07:47 08/27/18 07:47 08/27/18 07:47 Laboratory Results 08/27/18 05:20 08/25/18 04:30 08/26/18 08/27/18 08/28/18 05:59 05:59 05:59 Intake Total 1224 1233 Output Total 2625 1025 550 Balance -1401 208 -550 PT 18.0 SEC (12.0-15.0) H 08/18/18 06:30 INR 1.47 (0.83-1.16) H 08/18/18 06:30 Cardioresp status stable Platelet count remains in 50s range. Physical Exam - Physical Exam General Appearance: alert, no apparent distress Respiratory: lungs clear Cardiac/Chest: regular rate, rhythm, other (All wounds healing well. Dermabond beginning to slough) Abdomen: non-tender, soft Skin: warm/dry Extremities: other (no visible edema) ICD10 Worksheet Patient Problems: Problems Problem Status Onset Anticoagulant-induced bleeding Acute Pericardial effusion Acute Chronic anticoagulation Chronic PAF (paroxysmal atrial fibrillation) Chronic S/P aortic valve replacement with bioprosthetic valve Chronic ~08/04/18
--- NOTE | 2018-08-27 13:24 | SOAPPROG ---
SOAP Progress Note Assessment/Plan: E&M for thrombocytopenia * HIT: Due to the positive testing, we need to treat him appropriately. It may take some time, especially with the remote history of chemotherapy, to recover his platelets above 100K. I discussed with my partners and recommend switching to fondaparinux, which has been studied in HIT. In addition, his kidney function is much improved making is safer. Finally, he hasn't had any further bleeding on argatroban. He will need education around the injection. I recommend keeping the picc line for awhile as he will need follow up labs and he is a difficult stick. * Acute blood loss anemia: He had a pericardial hemorrhage requiring drainage - likely post operative phenomenon. Follow-up echo re-assuring; H&H has since been stable * Testicular cancer 40 years ago: 2 separate episodes: 1st treated with orchiectomy then 1 year of chemo (BEP-like?); 2nd was 2 years later treated with orchiectomy and similar chemo. * S/P aortic valve replacement Subjective: Doing well. No CP. No bleeding. Objective: Vital Signs Temp Pulse Resp BP Pulse Ox 36.6 C 64 18 146/75 H 100 08/27/18 12:00 08/27/18 12:00 08/27/18 12:00 08/27/18 12:00 08/27/18 12:00 Laboratory Results 08/27/18 05:20 08/25/18 04:30 08/26/18 08/27/18 08/28/18 05:59 05:59 05:59 Intake Total 1224 1233 Output Total 2625 1025 550 Balance -1401 208 -550 PT 18.0 SEC (12.0-15.0) H 08/18/18 06:30 INR 1.47 (0.83-1.16) H 08/18/18 06:30 IRENE = positive c/w HIT Physical Exam - Physical Exam General Appearance: no apparent distress Respiratory: lungs clear Cardiac/Chest: regular rate, rhythm ICD10 Worksheet Patient Problems: Problems Problem Status Onset Anticoagulant-induced bleeding Acute Pericardial effusion Acute Chronic anticoagulation Chronic PAF (paroxysmal atrial fibrillation) Chronic S/P aortic valve replacement with bioprosthetic valve Chronic ~08/04/18
--- NOTE | 2018-08-27 16:05 | ASMTCMCOM ---
CM Note CM Note Notes: CM spoke to BRENNAN Simmons regarding POC. Pt will most likely d/c tomorrow. Pts picc line will most likely remain in at time of d/c. CM arranged for pt to come to outpatient infusion for picc line flush on 08/29 at 11AM. Referral made to [facility]. [facility] is able to accept for start of care for Thursday 08/30 for picc line flush/care. CM inputted info into [employer] and notified BRENNAN Simmons. PHILIP to follow. Plan: [facility]CO RN Date Signed: 08/27/2018 04:04 PM Electronically Signed By:ROSELIA Gaviria
[2018-08-27] MEDS: FONDAPARINUX SODIUM 7.5 MG/0.6 ML SYR SC SCH (16:08)
[2018-08-27] MEDS: ATORVASTATIN CALCIUM 40 MG TAB PO SCH (22:34)
[2018-08-28 07:31] VITALS: BP 151/82
[2018-08-28] MEDS: ACETAMINOPHEN 325 MG TAB PO PRN (08:41)
[2018-08-28] MEDS: METOPROLOL TARTRATE 25 MG TAB PO SCH (08:42)
[2018-08-28] MEDS: FONDAPARINUX SODIUM 7.5 MG/0.6 ML SYR SC SCH (09:35)
--- NOTE | 2018-08-28 10:46 | PDDCSUM ---
Discharge Summary Discharge Summary: ADMISSION DATE: 08/13/18 DISCHARGE DATE: 08/28/18 ADMISSION DIAGNOSES 1. Massive, hemorrhagic, post-operative pericardial effusion secondary to Eliquis 2. Severe aortic stenosis s/p AVR 3. Acute blood loss anemia 4. Paroxysmal atrial fibrillation/flutter with heart block s/p AtriCLip MARTA 5. AV PPM DISCHARGE DIAGNOSES As above plus, 1. Heparin-Induced Thrombocytopenia 2. Presence of a long-term central venous catheter (PICC) 3. Chronic anticoagulation (Fondaparinux until platelets >100k then coumadin) 4. Acute renal failure secondary to low cardiac output, resolved 5. Acute mental status change secondary to hypotension, resolved PROCEDURES 08/13/2018: 1. Emergent subxiphoid pericardial window and drainage of effusion HPI 68M s/p MICS AVR and MARTA on 09/04/18 who presented to the clinic early with complaints of lightheadedness, diaphoresis, and feeling generally unwell. He had decreased heart tones and low BP on exam. Emergent TTE demonstrated massive pericardial effusion. He was taken to the OR for emergent drainage. HOSPITAL COURSE BY PROBLEM LIST 1. Massive, hemorrhagic, post-operative pericardial effusion secondary to Eliquis. Taken to the OR on 08/23/18 from clinic. 660 cc of dark blood was evacuated. Eliquis and all other antithrombotic agents were discontinued. ECHO after chest tube removal negative for recurrent effusion. 2. Severe aortic stenosis s/p AVR with #25 Intuity valve via mini-sternotomy. No sternal issues while admitted. Baby aspirin held due to thrombocytopenia. 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 Valve function was normal on post-op TTE. 3. Paroxysmal atrial fibrillation and flutter with heart block and presence of AV PPM. He was discharged on amiodarone for post-operative tachycardia from his first admission. However, this was removed as it was thought it could be a source of drug-induced thrombocytopenia. PPM interrogation pre-AVR demonstrated AF/AT burden <5% since 09/2017 and only MARTA exclusion undertaken at time of AVR. He will need to be re-evaluated by cardiology regarding his anticoagulation for atrial fibrillation in the setting of a confirmed bleed. CHADSVASC2 score is 2 (age, hypertension). He is on a beta-claude. No episodes of atrial fibrillation while in the hospital. 4. Acute blood loss anemia He required 1U of PRBC (08/17) for a hematocrit of 21.4, and 2 platelets (08/15 & 08/17) for platelet counts 25 and 28, respectively. 5. Acute renal failure Secondary to low cardiac output from massive pericardial effusion. His creatinine normalized. 6. Heparin Induced Thrombocytopenia patient had platelets trend down as low as 25 immediately post-op. Hematology was consulted on 08/15/18 for thrombocytopenia and a PF4 was sent. He was started on Argatroban. 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 The goal was to have platelets >100 prior to starting coumadin, but his platelets had a very minimal change (stuck in the 50s). He was changed to fondaparinux by Hematology so he could be discharged. Per Hematology, increase in platelets can take weeks to resolve. He did not have any bleeding or clotting episodes which in the hospital. US DVT screening negative. Serial H/H stable as well. 7. Presence of a long-term central venous catheter PICC. Patient is an extremely difficult stick due to remote history of chemotherapy and he will require multiple lab draws to monitor his resolution of HIT. He was discharged to perform a 10 cc normal saline flush once daily. CONSULTANTS: 1. Hematology (Drs. Victoria, Soraya) CONDITION Good PERTINENT DISCHARGE CLINICAL INFORMATION Vitals: 151/82, 62 v-paced, 98% on RA, -1 kg from 08/04 admission; -5 kg from admission Exam: S1S2, No resp distress, ND, soft, NTP, upper sternum CDI, lower window incision - CDI PICC line right side slightly oozing DISPOSITION Home with [facility] ACTIVITY Phase II Cardiac Rehab DISCHARGE MEDICATIONS Continue: Atorvastatin 40 mg PO HS Metoprolol 25 mg PO BID APAP PRN Bisacodyl PRN New: Alteplase 2mg IV Push as needed Fondaparinux 7.5 mg subcutaneous daily Tramadol 50 mg PO q6-8 as needed for pain Stop: Amiodarone Aspirin Eliquis Lasix/Potassium Ibuprofen Percocet FOLLOW-UP 1. Dr. Ashtyn Laura, Cardiology, with pacemaker interrogation of AF/AT burden. Reevaluate for chronic anticoagulation given patients left atrial appendage has been excluded in the setting of a bleed. Follow-up in 2-[address] Yogi Victoria, Hematology, patient to call 09/01. 3. Infusion center on the 3rd floor of hospital for care at 11 am 08/29 for PICC care/flush. 4. [facility] visiting nursing to help with flushes and PICC care over the weekend. 5. Dr. Trivedi/Zane PRN LABS 1. CBC 09/01 via ED - results to Dr. Victoria
--- NOTE | 2018-08-28 10:57 | PDIAF ---
- Diagnosis Diagnosis: hemorrhagic pericardial effusion due to HIT/eliquis Code Status: Full Code - Medication Management Additional Medication Instructions: NO HEPARIN, ASPIRIN, NONSTEROIDAL ANTI- INFLAMMATORIES Discharge Medications: electronically signed and located in the Home Medication List. PICC Care - Routine: Yes (Please provide extra 10cc NS syringes for daily PICC flushes if possible) - Orders Services needed: Registered Nurse (Sat 08/30 and Sun 08/31, PICC flushes and assistance Fondaparinux injections) Isolation Type: None Diet Recommendation: low fat Diet Texture: Regular Texture Diet, Thin Liquids Rothman: Not applicable Additional Instructions: Call [facility] cardiac rehab to resume phase 2 classes. Ok to ease into resistance training of arms. Cleanse wounds once daily with soap and water. Avoid underwater immersion (pool , hot tub, bath) until scabs off. Ok to leave all wounds open to air. Avoid creams or ointments until scabs off. Elevate low legs at rest. Avoid prolonged standing or dangling. Cont to log daily vital signs: weight, resting heart rate over 1 minute, and blood pressure. Call [facility] for overnight weight gain > 2lbs, weekly gain > 5lbs or worsening leg swelling. Call [facility] for resting heart rate > 120 OR for systolic blood pressure consistently < 90 or > 150. Please go to infusion center on the 3rd floor of hospital for PICC care/ instruction at 11am tomorrow. [facility] visiting nurse to help with injections and PICC care over the weekend. Please obtain labwork (CBC) on 09/01. Go to the Emergency Room entrance at the [facility] location. Sign in at the computer kiosk in the entryway. You will be given a number & may sit in the waiting area until called. You will be registered and directed to the lab on the 1st floor. This process can take up to an hour. Please call Dr Victoria's office on 09/01 for further instructions and follow- up appointment. Reminder: lifelong antibiotic prophylaxis prior to dental, respiratory tract, or skin/soft tissue procedures. - Labs/Radiology CBC w/diff Date: 09/01/18 (to be drawn at [facility]) - Follow Up Care Current Providers and Referrals: Yogi Victoria MD [Medical Doctor] - 3-5 days Patient,NotPresent [Unknown] - Laura,Ashtyn G, MD [Medical Doctor] - (Follow up in 2-3 weeks. )
--- NOTE | 2018-08-28 11:33 | SOAPPROG ---
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 1. HIT: His IRENE confirms HIT. Unfortunately, his plt count has not recovered as anticipated. I explained to him that he ideally needs to be started on coumadin when his platelet count normalizes and from what I see that is 140's based on pre-op labs. One consideration would be to give IVIG which is documented in severe thrombocytopenia with HIT although not necessarily standard of care. He is very motivated to leave today and will f/u with Dr. Yogi Victoria next weeks. He voices his understanding of bleeding risks and will return to the ER if any symptoms return. He is on Arixtra 7.5mg sq daily. His GFR is acceptable but will need to be monitored next week . 2. Vascular access: I explained to him that he doesn't necessarily need the PICC line as our phlebotomists are very good with peripheral veins for labs. He would like the PICC in for the time being. Infection risk was explained and understood by him and his . He will do daily flushes. 08/28/18 11:29 Subjective: Feeling well this AM. Very anxious to be discharged. Objective: Vital Signs Temp Pulse Resp BP Pulse Ox 36.6 C 62 14 151/82 H 98 08/28/18 07:32 08/28/18 08:42 08/28/18 04:00 08/28/18 08:42 08/28/18 07:29 Laboratory Results 08/28/18 05:15 08/28/18 05:15 08/27/18 08/28/18 08/29/18 05:59 05:59 05:59 Intake Total 1233 975 Output Total 1025 950 Balance 208 25 PT 18.0 SEC (12.0-15.0) H 08/18/18 06:30 INR 1.47 (0.83-1.16) H 08/18/18 06:30 General: Pleasant, conversant, NAD, standing outside the hospital door awaiting discharge CV: incision well healed. Ext: No c/c/e picc line in place Neuro: Moving all ext ICD10 Worksheet Patient Problems: Problems Problem Status Onset Anticoagulant-induced bleeding Acute Pericardial effusion Acute Chronic anticoagulation Chronic PAF (paroxysmal atrial fibrillation) Chronic S/P aortic valve replacement with bioprosthetic valve Chronic ~08/04/18
--- NOTE | 2018-08-28 11:44 | ASMTLACE ---
LACE Length of stay for Answers: 14 days or more current admission Acuity / Level of Answers: Yes Care: Did the patient have an inpatient admission? Comorbidities - select Answers: Other Notes: Aortic all that apply stenosis; Pacemaker # of Emergency department Answers: 0 visits in the last 6 months Score: 11 Date Signed: 08/28/2018 11:43 AM Electronically Signed By:Chelsea Cameron RN
--- NOTE | 2018-08-28 11:47 | ASDISCHSUM ---
Discharge Information Plan Status:Home with Home Health Medically Cleared to Leave:08/27/2018 Discharge Date:08/28/2018 12:04 PM D/C Disposition:Home Health Service [facility] D/C Disposition:Home, Routine, Self-Care Projected Discharge Date:08/28/2018 11:00 AM Transportation at D/C:Family Discharge Delay Reason: Follow-Up Date:08/28/2018 11:00 AM Discharge Slot: Final Diagnosis: Placement Information Referral Type:*Home Health Care Services Referral ID:[id number] Provider Name:[facility] [address] Address 2: City:[place] Selection Factors: State:[place] Referral Type:Home Infusion Referral ID:[id number] Provider Name:[facility] Address 1:[address] Address 2: City:[place] Selection Factors: State:[place] Patient Contact Information Contact Name:ARLIN Relationship: Address:[address] Work Phone: [facility]:[employer] [facility] Phone: [facility]/Zip Code:[place] [address] Email: Financial Information Financial Class:Medicare Primary Plan Desc:MEDICARE INPATIENT Primary Plan Number:[id number] Secondary Plan Desc:RASHAWN/MDR SUPPLEMENT Secondary Plan Number:[id number] Assessment Information LACE LACE Length of stay for Answers: 14 days or more current admission Acuity / Level of Answers: Yes Care: Did the patient have an inpatient admission? Comorbidities - select Answers: Other Notes: Aortic all that apply stenosis; Pacemaker # of Emergency department Answers: 0 visits in the last 6 months Score: 11 Date Signed: 08/28/2018 11:43 AM Electronically Signed By:Chelsea Cameron RN [facility] Initial CM Assessment Living Arrangements What is your living Answers: With Spouse arrangement? Who do you live with? Type Of Residence What kind of residence do Answers: House you live in? Discharge Plan Comments Coordination Status Comments Notes: Patient is a 68yo male who underwent aortic valve replacement approximately 10 days ago. Patient returned to the clinic on the and was found to have a large pericardial effusion. He was taken to surgery for urgent drainage.No therapies ordered at this time. Likely patient will d/c independently. D/C plan TBD. CM will follow. Date Signed: 08/14/2018 09:39 AM Electronically Signed By:Lise Menjivar LCSW [facility] CM Progress Note CM Note CM Note Notes: Therapies have been ordered and awaiting recommendations. Needs are TBD at this time. CM to follow. Date Signed: 08/15/2018 02:02 PM Electronically Signed By:ROSELIA Gaviria [facility] CM Progress Note CM Note CM Note Notes: CM spoke with Speech Therapist, patient initally refused order cognition eval but completed eval later in the day and is found to have significant impairment. SP is recommending outpatient speech. Patients was not present, CM needs to learn if there are HH preferences. OT recommending Home Care. Scheduled for echo today. CM to follow. Current D/C Plan: possible HH. Date Signed: 08/17/2018 05:08 PM Electronically Signed By:Sravani Culver [facility] CM Progress Note CM Note CM Note Notes: 08/18/2018 Case Management Note Discussed w/RN. Reviewed chart. PT is recommending outpatient cardiac rehab. Family has been present today with patient. Case Management d/c poc: home with family support and outpatient cardiac rehab Case Management to follow. Date Signed: 08/18/2018 02:04 PM Electronically Signed By:Chelsea Cameron RN [facility] CM Progress Note CM Note CM Note Notes: 08/20/2018 Case Management Note Discussed with Marcelino RAY this morning. Anticipating d/c end of week or over the weekend. Case Management d/c poc: cardiac rehab Case Management to follow. Date Signed: 08/20/2018 12:21 PM Electronically Signed By:Chelsea Cameron RN [facility] CM Progress Note CM Note CM Note Notes: Patient requires continued hospital admission for platelet count <100 and Agatroban drip. Otherwise, he is doing well and eager to go home. No d/c needs at this time. Date Signed: 08/23/2018 11:50 AM Electronically Signed By:Adele Huynh RN [facility] Progress Note CM Note CM Note Notes: Pt continues to requires treatment. No CM needs anticipated; CM will follow for changes. D/C Plan: Independent. Date Signed: 08/26/2018 03:05 PM Electronically Signed By:Shabana Coleman [facility] Progress Note CM Note CM Note Notes: PHILIP spoke to BRENNAN Simmons regarding POC. Pt will most likely d/c tomorrow. Pts picc line will most likely remain in at time of d/c. PHILIP arranged for pt to come to outpatient infusion for picc line flush on 08/29 at 11AM. Referral made to [facility]. [facility] is able to accept for start of care for Thursday 08/30 for picc line flush/care. PHILIP inputted info into [employer] and notified BRENNAN Simmons. PHILIP to follow. Plan: JORGE AMIN Date Signed: 08/27/2018 04:04 PM Electronically Signed By:ROSELIA Gaviria Case Management Discharge Plan Note Case Management Discharge Discharge Order Complete? Answers: Yes Patient to Obtain Answers: via Family Medications Transportation Arranged Answers: Family/Friends Faxed Final Orders Answers: Yes Agency/Facility Transfer Answers: Yes Report Printed & Faxed to Receiving Agency Family Notified Answers: Yes Notes: in room Discharge Comments Notes: 08/28/2018 Case Management Note Pt to discharge home with family. Pt has appointment tomorrow at 11 am at the outpatient infusion clinicfor PICC line cares. [facility] RN will assume PICC cares on Saturday. Faxed final orders to [facility]. Date Signed: 08/28/2018 11:46 AM Electronically Signed By:Chelsea Cameron RN [facility] CM Progress Note CM Note CM Note Notes: 08/29/2018 Case Mangaement Note Faxed referral to [facility] for PICC supplies. Phone call back from [facility] that pt refused supply delivery. Pt anticipates his can perform the PICC flushes and now has no need for extension tubing. [facility] notified via phone. [facility] RN to visit with pt Thursday 08/30 Date Signed: 08/29/2018 12:42 PM Electronically Signed By:Chelsea Cameron RN Intervention Information Intervention Type:*IM-Signed Date of Service:08/22/2018 02:31 PM Patient Type:Inpatient Staff Member:Yaneth Patricia Hours: Discipline: Severity: Comment: Intervention Type:*IM-Signed Date of Service:08/28/2018 11:43 AM Patient Type:Inpatient Staff Member:BRENNAN Cameron, [facility] Hours: Discipline: Severity: Comment:
--- NOTE | 2018-08-29 12:43 | ASMTCMCOM ---
CM Note CM Note Notes: 08/29/2018 Case Mangaement Note Faxed referral to [facility] for PICC supplies. Phone call back from [facility] that pt refused supply delivery. Pt anticipates his can perform the PICC flushes and now has no need for extension tubing. [facility] notified via phone. [facility] RN to visit with pt Thursday 08/30 Date Signed: 08/29/2018 12:42 PM Electronically Signed By:Chelsea Cameron RN
== END 2018-08-28 12:04 | disposition home health service (06) | DRG 271 ==
LOC: F2N 12:31 → F2W 08-14 16:05
PROVIDERS: ADMIT Thoracic Surgery (Cardiothoracic Vascular Surgery); ATTEND Thoracic Surgery (Cardiothoracic Vascular Surgery)
PROC: 0W9D00Z Drainage of Pericardial Cavity with Drainage Device, Open Approach (ICD-10-PCS; principal; 2018-08-13 18:45)
PROC: 30233R1 Transfusion of Nonautologous Platelets into Peripheral Vein, Percutaneous Approach (ICD-10-PCS; 2018-08-15)
PROC: 30233N1 Transfusion of Nonautologous Red Blood Cells into Peripheral Vein, Percutaneous Approach (ICD-10-PCS; 2018-08-17)
PROC: 02H633Z Insertion of Infusion Device into Right Atrium, Percutaneous Approach (ICD-10-PCS; 2018-08-21)
DX: I31.3 Pericardial effusion (noninflammatory) (principal); N17.9 Acute kidney failure, unspecified; D62 Acute posthemorrhagic anemia; D75.82 Heparin induced thrombocytopenia (HIT); I95.9 Hypotension, unspecified; Z95.3 Presence of xenogenic heart valve; Z79.01 Long term (current) use of anticoagulants; Z85.47 Personal history of malignant neoplasm of testis
CPT/HCPCS: 86022-90; 92507-GN; 92523-GN; 97116-GP; 97162-GP; 97166-GO; 97530-GP; 97535-GO; C1751; G8978-GP-CJ; G8979-GP-CI; G8987-GO-CJ; G8988-GO-CI; G8989-GO-CI; G9165-GN-CL; G9166-GN-CJ; J0690; J0883; J1170; J1652; J2270; J2370; J2704; J3010; P9016; P9035

== ENCOUNTER → 2018-09-16 | Outpatient (CLI) | payer OTHER, MEDICARE | LOC: BHFA 10:15 | PROVIDERS: ATTEND Internal Medicine Cardiovascular Disease | DX: I31.3 Pericardial effusion (noninflammatory) (principal) ==

== ENCOUNTER → 2018-12-12 | Outpatient (CLI) | payer OTHER, MEDICARE | LOC: BHFA 10:45 | PROVIDERS: ATTEND Internal Medicine Cardiovascular Disease | DX: Z95.2 Presence of prosthetic heart valve (principal) ==